=== PATIENT | male | born 1945 | race American Indian/Alaskan Native ===

== ENCOUNTER 2017-04-07 05:49 | Day surgery (SDC) | payer MEDICARE ==
[2017-04-07] MEDS ORDERED: NACL BACTERIOSTATIC INFILTRATI ONE (06:39)
[2017-04-07] MEDS ORDERED: ANCEF/STERILE WATER 2 GM/20 ML IV NR (06:52)
[2017-04-07 07:00] LABS: Hematocrit 36.5 % (35.5-45.6); Hemoglobin 10.8 gm/dl (11.8-15.2); Mean Corpuscular HGB Conc 29 % (32-34); Mean Corpuscular Hemoglobin 19 pg (28-32); Mean Corpuscular Volume 64 fl (84-94); Platelet Count 214 K/mm3 (140-440); Red Blood Count 5.72 M/mm3 (3.65-5.03); Red Cell Distribution Width 27.8 % (13.2-15.2)
--- NOTE | 2017-04-07 07:06 | Anesthesia Day of Surgery ---
Anesthesia Day of Surgery - Day of Surgery Patient Examined: Yes Patient H&P Reviewed: Yes Patient is NPO: Yes
--- NOTE | 2017-04-07 07:07 | Anesthesia Consultation ---
Anesthesia Consult and Med Hx Date of service: 04/07/17 - Airway Anesthetic Teeth Evaluation: Bridges ROM Head & Neck: Adequate Mental/Hyoid Distance: Adequate Mallampati Class: Class II Intubation Access Assessment: Probably Good - Pulmonary Exam CTA: Yes - Cardiac Exam Cardiac Exam: RRR - Pre-Operative Health Status ASA Pre-Surgery Classification: ASA3 Proposed Anesthetic Plan: General - Pulmonary Hx Smoking: No Hx Asthma: No Hx Sleep Apnea: Yes (wears CPAP at night) - Cardiovascular System Hx Hypertension: Yes (20+ YEARS; DR ROSADO AT [facility];) Hx Coronary Artery Disease: Yes (2013, stent x 2 (02/2014 and 05/2013)) Hx Heart Attack/AMI: Yes (07/2013, LVEF 30-35%) Hx Percutaneous Transluminal Coronary Angioplasty (PTCA): Yes (stents x 2) - Central Nervous System Hx Seizures: No 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
[2017-04-07] MEDS ORDERED: ZOFRAN IV PRN (07:08)
[2017-04-07] MEDS ORDERED: SUBLIMAZE IV PRN (07:08)
[2017-04-07] MEDS ORDERED: DIPRIVAN 10 MG/ML IV ONE (07:14)
[2017-04-07] MEDS ORDERED: PROVENTIL IH NR (07:15)
[2017-04-07] MEDS ORDERED: ZEMURON IV ONE (07:15)
[2017-04-07] MEDS ORDERED: DECADRON ONE (07:15)
[2017-04-07] MEDS ORDERED: ROBINUL ONE ×2 (07:15)
[2017-04-07] MEDS ORDERED: NEOSTIGMINE ONE (07:16)
[2017-04-07] MEDS ORDERED: XYLOCAINE MPF 2% ONE (07:16)
[2017-04-07 07:17] LABS: BUN/Creatinine Ratio 13; Blood Urea Nitrogen 13 mg/dL (9-20); Calcium 8.8 mg/dL (8.4-10.2); Hemolysis Index 3
[2017-04-07] MEDS ORDERED: MARCAINE 0.5% 30 ML INFILTRATI ONE (07:21)
[2017-04-07] MEDS ORDERED: AMIDATE IV ONE (07:28)
[2017-04-07] MEDS ORDERED: XYLOCAINE 1% 20 mL INFILTRATI ONE (07:29)
[2017-04-07] MEDS ORDERED: NACL 0.9% IR ONE (07:29)
[2017-04-07] MEDS ORDERED: MARCAINE 0.25% INFILTRATI ONE ×2 (07:29→08:04)
[2017-04-07] MEDS ORDERED: PEPCID IV NR (08:00)
[2017-04-07] MEDS ORDERED: NACL 0.9% 1000 ML 1,000 ML IV SCH (08:00)
[2017-04-07] MEDS ORDERED: XYLOCAINE 1% 20 mL ONE (08:04)
[2017-04-07 08:15] LABS: Anisocytosis 2+; Band Neutrophils # (Manual) 0.1 K/mm3; Basophils % (Manual) 0 % (0.0-1.8); Total Cells Counted 100
[2017-04-07 08:16] LABS: Hypochromasia 2+; Poikilocytosis Few; Target Cells Few
[2017-04-07] MEDS ORDERED: NACL 0.9% 100 ML ONE (08:54)
[2017-04-07] MEDS ORDERED: NEO SYNEPHRINE/NS Syringe(OR USE) IV ONE (08:54)
[2017-04-07] MEDS ORDERED: NEO SYNEPHRINE ONE (08:54)
[2017-04-07] MEDS ORDERED: NACL 0.9% 1000 ML 1,000 ML ONE (09:52)
--- NOTE | 2017-04-07 10:12 | Short Stay Summary ---
Short Stay Documentation Date of service: 04/07/17 Narrative H&P: 72 year male with a history of hypertension, CAD, was seen in the office for complaints of right groin bulge and was found to have a right inguinal hernia which is reducible. The patient had a history of a right inguinal hernia repair in the past. He has no complaints today. - History Principal diagnosis: recurrent right inguinal hernia H&P: obtained from office - Allergies and Medications Current Medications: Allergies No Known Allergies Allergy (Verified 04/06/14 09:15) Home Medications Medication Instructions Recorded Confirmed Last Taken Type Simvastatin 20 mg PO QDAY 02/24/14 04/06/14 04/06/17 History Carvedilol [Coreg] 6.25 mg PO BID #60 tablet 02/26/14 04/06/14 04/07/17 Rx Magnesium Oxide [Mag-Ox] 400 mg PO QDAY #30 tablet 02/26/14 04/06/14 04/06/17 Rx Tizanidine HCl [tiZANidine] 4 mg PO PRN PRN 03/21/14 04/06/14 04/06/17 History Pantoprazole [Protonix] 40 mg PO BID #30 tablet 11/26/15 04/06/17 Rx Lisinopril [Zestril TAB] 40 mg PO DAILY 04/07/17 04/07/17 04/07/17 History Active Medications Cefazolin Sodium (Ancef/Sterile Water 2 Gm/20 Ml) 2 gm IV PREOP NR Stop: 04/07/17 23:59 Famotidine (Pepcid) 20 mg IV PREOP NR Stop: 04/07/17 12:00 Last Admin: 04/07/17 07:10 Dose: 20 mg Fentanyl (Sublimaze) 50 mcg IV Q5MIN PRN PRN Reason: Pain , Severe (7-10) Stop: 04/07/17 15:00 Hydromorphone HCl (Dilaudid) 0.25 mg IV Q10MIN PRN PRN Reason: Pain, Moderate (4-6) Stop: 04/07/17 15:00 Sodium Chloride (Nacl 0.9% 1000 Ml) 1,000 mls @ 75 mls/hr IV DIRECT ANIA Last Admin: 04/07/17 07:05 Dose: 75 mls/hr Ondansetron HCl (Zofran) 4 mg IV ONCE PRN PRN Reason: Nausea And Vomiting Stop: 04/07/17 12:00 - Brief post op/procedure progress note Date of procedure: 04/07/17 Pre-op diagnosis: recurrent right inguinal hernia, reducible Post-op diagnosis: same Procedure: Laparoscopic right inguinal hernia repair with mesh Anesthesia: EMILIANA local Findings: Large indirect hernia with chronically incarcerated sac Surgeon: BHAVIK LINN Estimated blood loss: minimal Pathology: none Condition: stable - Hospital course Hospital course: Patient underwent a laparoscopic right inguinal hernia repair with mesh. He was observed in the recovery room until discharge criteria was met. He was discharged home in stable condition. - Disposition Condition at discharge: Good Disposition: DC- TO HOME OR SELFCARE - Discharge Diagnoses (1) Recurrent inguinal hernia of right side without obstruction or gangrene Status: Acute Short Stay Discharge Plan Activity: other (do not lift greater than 15-20 pounds for the next 4-6 weeks. No driving while taking narcotic pain medication) Diet: low salt Wound: open to air (May shower tomorrow. Do not submerge incisions and bathtubs , pools, hot tubs until incisions are healed. Pad incisions dry, do not scrub) Additional Instructions: Call surgeon's office if you've fevers greater than 100.4, abdominal pain not controlled with prescription pain medication, intractable nausea/vomiting. He may experience swelling and bruising of the groin, scrotum. Use ice to the area for discomfort. If the swelling and bruising do not improve, call the surgeon's office. Follow up with: JINNY GAONA MD [Primary Care Provider] - 7 Days BHAVIK LINN DO [Staff Physician] - 14 Days Forms: Outpatient Surgery DC Inst. Prescriptions: HYDROcodone/ACETAMINOPHEN [Vicodin HP 10-300 mg TAB] 1 tab PO Q4H PRN #30 tablet PRN Reason: Pain
[2017-04-07] MEDS: DILAUDID IV PRN ×2 (10:25→10:34)
--- NOTE | 2017-04-07 10:27 | Operative Report ---
Operative Report Operative Report: Operative Report: Date of operation: 04/07/17 Preoperative diagnosis: Recurrent right inguinal hernia without obstruction or gangrene Postoperative diagnosis: Same as above Procedure performed: Laparoscopic right inguinal hernia repair with mesh Surgeon: Malgorzata Mohamud DO Anesthesia: Gen. endotracheal anesthesia Findings: indirect defect with large chronically incarcerated hernia sac Estimated blood loss: Less than 10 mL Specimen: None Complications: None Disposition: Stable to PACU HPI an indication: Patient is a 72 male who presented to office for evaluation of a lump in his right groin. The patient had a history of right femoral hernia repair in the past. He was found to have a right inguinal hernia, which was reducible on exam. The patient was set up for elective laparoscopic right inguinal hernia repair with mesh. Cardiology clearance were obtained prior to surgery. All risks of surgery were discussed with the patient, all questions answered, and consent was signed and placed on the chart. Procedure in detail: The patient was identified in the preoperative area, taken back to the operating room and placed on the operating table in supine position. After anesthesia was induced a Saucedo catheter was sterilely placed by the circulating nurse. Both arms were tucked at the side with the appropriate padding. The abdomen was then prepped and draped in usual sterile fashion and a timeout was performed. Local anesthetic, a mixture of 0.25% Marcaine and 1% lidocaine was injected into all skin incision sites. A horizontal incision was made to the left of the umbilicus using an 15 blade. Dissection was carried down through the skin and subcutaneous tissue using Bovie electrocautery until the anterior fascia was encountered. This was opened with the Bovie until muscle was visualized. The muscle was gently split in the direction of its fibers and the preperitoneal space entered. The preperitoneal space was bluntly developed with a gloved finger. Then the Spacemaker balloon was inserted into this layer and gently guided towards the pubic tubercle. Once in the correct position, the Spacemaker balloon was inflated under direct visualization using the laparoscopic camera. Once the space was dissected, the balloon was deflated and removed. A 12 mm balloon trocar was then placed into the preperitoneal space and the space insufflated to 15 mmHg. 2- 5 mm trocars were then placed under direct visualization in the midline, the first 3 fingerbreadths below the umbilicus and the second 3 fingerbreadths below that. Using the laparoscopic Kittner dissectors, the space lateral to the cord structures was developed. The peritoneum was scarred down here and an unavoidable small tear was made in the peritoneum. This was approximated well using a 5mm clip metal products viewer. I then turned my attention medially and cleared the pubic tubercle of overlying fat and tissue. The cord was identified and the surrounding fat, peritoneum, and cremasteric muscles were gently from the cord structures. The patient had an indirect hernia, and a large hernia sac which was completely reduced. Hemostasis was then ensured. A large right- sided bard 3-D max mesh was then introduced through the 12 mm port. This was positioned appropriately with the medial aspect over the pubic tubercle. The mesh was laid flat and tacked to the pubic tubercle medially, and laterally to the abdominal wall using the pro-tack. 10 mL of local anesthetic was instilled into the preperitoneal space through a trocar. The preperitoneal space was then desufflated under direct visualization and the mesh was seen to lay flat. All ports were then removed. I then decided to place a port through the periumbilical incision and insufflate the abdomen in order to ensure that the mesh was covered completely by peritoneum and not in contact with bowel. The peritoneum was grasped between 2 hemostats and tented upwards. It was cut between hemostats using a Metzenbaum scissor. A 5 mm trocar was placed through this and the abdomen insufflated to 15 mmHg. The abdomen was then inspected and the area of the right groin was visualized. The mesh was not exposed to the intra-abdominal structures and was seen to lay flat in the preperitoneal space. In addition, there did not appear to be any injury to the intra-abdominal structures. The abdomen was then desufflated and the trocar removed. The fascia of the umbilical port was closed using interrupted 0 Vicryl stitches. All skin incisions were closed with 4-0 Monocryl subcuticular stitches and skin glue. Local anesthetic was infiltrated into the skin sites. At the end of the case, all sponge, instrument, sharp counts were correct 2. The patient's scrotum was palpated, there were 2 testicles present. Residual scrotal air was decompressed. The Saucedo catheter was removed. The patient was awoken from anesthesia, extubated, and he was taken to PACU in stable condition.
--- NOTE | 2017-04-07 10:50 | Post Anesthesia Evaluation ---
- Post Anesthesia Evaluation Patient Participated: Yes Airway Patent: Yes Stable Respiratory Function: Yes Nausea/Vomiting: No Temp > 96.8F: Yes Pain Manageable: Yes Adequeate Hydration: Yes Anesthesia Complications: No
[2017-04-07 13:05] VITALS: BP 153/94
== END 2017-04-07 12:32 | disposition home or self-care (01) ==
LOC: OR 05:49
PROVIDERS: ATTEND Surgery
DX: K40.91 Unilateral inguinal hernia, without obstruction or gangrene, recurrent (principal); I10 Essential (primary) hypertension; I25.10 Atherosclerotic heart disease of native coronary artery without angina pectoris; Z95.1 Presence of aortocoronary bypass graft; I21.3 ST elevation (STEMI) myocardial infarction of unspecified site; I63.9 Cerebral infarction, unspecified; M19.90 Unspecified osteoarthritis, unspecified site; Z68.30 Body mass index [BMI] 30.0-30.9, adult; Z79.899 Other long term (current) drug therapy; I25.5 Ischemic cardiomyopathy; E78.5 Hyperlipidemia, unspecified
CPT/HCPCS: 36415; 49651; 80048; 85007; 85025; C1781; J0690; J1100; J1170; J2370; J2405; J2704; J2710; J3010; J7030

== ENCOUNTER 2017-09-30 10:19 | Outpatient (CLI) | payer MEDICARE ==
--- NOTE | 2017-09-30 13:33 | XRay Report ---
Right hip: Pain. The bones are generally well mineralized. There is virtually no joint space remaining in the right hip. Large subchondral erosions are present throughout the femoral head with smaller erosions in the superior acetabulum. The femoral head however is well positioned in the acetabulum. Small subchondral erosions are identified in the lateral aspect of the left acetabulum. The pelvis is not otherwise significantly remarkable. There is bone fusion between the left L4 and L5 transverse processes. Review of prior CT in November 2015 demonstrates similar findings. Impression: 1. Severe degenerative right hip changes. 2. L4-5 fusion as described.
== END 2017-09-30 10:20 | disposition home or self-care (01) ==
LOC: XRAY 10:19
PROVIDERS: ATTEND Orthopaedic Surgery
DX: M16.11 Unilateral primary osteoarthritis, right hip (principal); M43.26 Fusion of spine, lumbar region; I10 Essential (primary) hypertension; I25.10 Atherosclerotic heart disease of native coronary artery without angina pectoris; D64.9 Anemia, unspecified; E78.00 Pure hypercholesterolemia, unspecified; K21.9 Gastro-esophageal reflux disease without esophagitis

== ENCOUNTER 2017-12-18 11:25 | Outpatient (CLI) | payer MEDICARE ==
--- NOTE | 2017-12-18 13:28 | XRay Report ---
RIGHT HIP, 2 VIEWS History: Pain in right hip Findings: Total right hip replacement has been performed. The hardware appears well applied. Subtle fracture lines are identified in the intertrochanteric region of the right femur. These appear to be unchanged since the CT of the right hip performed 10/19/17. Moderate heterotopic calcifications have developed surrounding the right hip. The visualized pelvic bones are intact. Impression: Subtle nondisplaced fracture lines are identified in the proximal right femur as described. Interval development of heterotopic calcifications. Stable appearance of the hip prosthesis.
== END 2017-12-18 11:26 | disposition home or self-care (01) ==
LOC: XRAY 11:25
PROVIDERS: ATTEND Orthopaedic Surgery
DX: S72.144A Nondisplaced intertrochanteric fracture of right femur, initial encounter for closed fracture (principal); I10 Essential (primary) hypertension; I25.10 Atherosclerotic heart disease of native coronary artery without angina pectoris; X58.XXXA Exposure to other specified factors, initial encounter; Y93.89 Activity, other specified; Y92.89 Other specified places as the place of occurrence of the external cause; Y99.8 Other external cause status

== ENCOUNTER 2018-12-18 14:48 | Inpatient (IN) | payer MEDICARE ==
[2018-12-18] MEDS ORDERED: SODIUM CHLORIDE 0.9% 1000 ML 1,000 ML IV ONE ×2 (15:04→16:38)
--- NOTE | 2018-12-18 15:04 | Event Note ---
ED Screening Note Date of service: 12/18/18 Time: 15:00 ED Screening Note: This is a 73 y.o. M. that presents to the ER with incontinence and fatigue for 2 days. PMH of HTN, BPH, GERD, and HLD This initial assessment/diagnostic orders/clinical plan/treatment(s) is/are subject to change based on patients health status, clinical progression and re- assessment by fellow clinical providers in the ED. Further treatment and workup at subsequent clinical providers discretion. Patient/guardian urged not to elope from the ED as their condition may be serious if not clinically assessed and managed. Initial orders include: Accucheck greater than 500 Labs
[2018-12-18 15:38] LABS: Basophils % (Auto) 0.4 % (0.0-1.8); Eosinophils % (Auto) 0.1 % (0.0-4.3); Hemoglobin 13.8 gm/dl (11.8-15.2); Lymphocytes # (Auto) 0.4 K/mm3 (1.2-5.4); Lymphocytes % (Auto) 5.9 % (13.4-35.0); Mean Corpuscular HGB Conc 31 % (32-34); Mean Corpuscular Volume 91 fl (84-94); Monocytes # (Auto) 0.5 K/mm3 (0.0-0.8); Monocytes % (Auto) 7.2 % (0.0-7.3); Platelet Count 193 K/mm3 (140-440); Red Blood Count 4.82 M/mm3 (3.65-5.03); Red Cell Distribution Width 13.7 % (13.2-15.2)
[2018-12-18 15:58] LABS: Calcium 9.3 mg/dL (8.4-10.2)
[2018-12-18 16:03] LABS: Bilirubin,Direct 0.3 mg/dL (0-0.2)
[2018-12-18] MEDS ORDERED: SODIUM CHLORIDE 0.9% 1000 ML 2,000 ML IV ONE (16:38)
[2018-12-18] MEDS ORDERED: DEXTROSE 50% IN WATER (25GM) 50 ML SYRINGE IV PRN ×2 (16:38→20:01)
[2018-12-18] MEDS ORDERED: INSULIN REGULAR, HUMAN 100 UNITS/1 ML IV ONE (16:41)
--- NOTE | 2018-12-18 16:41 | Emergency Department Report ---
ED General Adult HPI - General Chief complaint: Hyperglycemia Stated complaint: POSS STROKE Time Seen by Provider: 12/18/18 14:59 Source: patient, RN notes reviewed, old records reviewed Mode of arrival: Wheelchair Limitations: Physical Limitation - History of Present Illness Initial comments: Primary care Dr.: Dr. Allan Mcdaniel's Past medical history: Stroke, heart disease, high cholesterol, hypertension, history of hip replacement This is a 73-year-old gentleman. This patient is not known to this provider previously. He presents to the ER with his . He has a chief complaint of malaise, fatigue, weakness, increased thirst, increased urination. Symptoms present for the past 2 days. He denies physical pain. Symptoms constant. They are painless. They do not radiate anywhere. There were some physical exertion. It decreased with rest. He denies headache, neck pain, chest pain, abdominal pain, cough, urinary symptoms. No history of diabetes that he is aware of. -: Gradual, days(s) Severity scale (0 -10): 0 Consistency: constant Improves with: rest Worsens with: movement - Related Data Home Medications Medication Instructions Recorded Confirmed Last Taken Tizanidine HCl [tiZANidine] 4 mg PO PRN PRN 03/21/14 10/08/17 04/06/17 Lisinopril [Zestril TAB] 20 mg PO BID 04/07/17 10/08/17 04/07/17 Aspirin [Lo-Dose Aspirin EC] 81 mg PO DAILY 10/08/17 10/08/17 Unknown Atorvastatin Calcium [Lipitor] 40 mg PO DAILY 10/08/17 10/08/17 Unknown Carvedilol [Coreg] 12.5 mg PO BID 10/08/17 10/08/17 Unknown Clopidogrel Bisulfate [Plavix] 75 mg PO DAILY 10/08/17 10/08/17 Unknown Ferrous Sulfate [Ferrous Sulfate 324 mg PO DAILY 10/08/17 10/08/17 Unknown 324 MG] Spironolactone [Aldactone] 12.5 mg PO QDAY 10/08/17 10/08/17 Unknown Tamsulosin [Flomax] 0.4 mg PO QDAY 10/08/17 10/08/17 Unknown Previous Rx's Medication Instructions Recorded Last Taken Type Magnesium Oxide [Mag-Ox] 400 mg PO QDAY #30 tablet 02/26/14 04/06/17 Rx Pantoprazole [Protonix TAB] 40 mg PO BID #30 tablet 11/26/15 04/06/17 Rx Allergies Allergy/AdvReac Type Severity Reaction Status Date / Time No Known Allergies Allergy Verified 04/06/14 09:15 ED Review of Systems ROS: Stated complaint: POSS STROKE Other details as noted in HPI Constitutional: malaise Eyes: denies: eye discharge ENT: denies: congestion Respiratory: shortness of breath Cardiovascular: denies: chest pain Endocrine: increased thirst, increased urine Gastrointestinal: denies: abdominal pain Genitourinary: frequency Musculoskeletal: denies: myalgia Skin: denies: lesions Neurological: weakness Psychiatric: anxiety ED Past Medical Hx - Past Medical History Previous Medical History?: Yes Hx Hypertension: Yes (20+ YRS) Hx CVA: Yes (left sided weakness) Hx Heart Attack/AMI: Yes (2013) Hx GERD: Yes Hx Renal Disease: No Hx Arthritis: Yes (KNEES) Hx Seizures: No Hx Asthma: No Hx HIV: No - Surgical History Past Surgical History?: Yes Hx Coronary Stent: Yes (X 2 ,2013 AND 2014) Additional Surgical History: "hernia surgery July 2012" - Social History Smoking Status: Never Smoker Substance Use Type: None - Medications Home Medications: Home Medications Medication Instructions Recorded Confirmed Last Taken Type Magnesium Oxide [Mag-Ox] 400 mg PO QDAY #30 tablet 02/26/14 10/08/17 04/06/17 Rx Tizanidine HCl [tiZANidine] 4 mg PO PRN PRN 03/21/14 10/08/17 04/06/17 History Pantoprazole [Protonix TAB] 40 mg PO BID #30 tablet 11/26/15 10/08/17 04/06/17 Rx Lisinopril [Zestril TAB] 20 mg PO BID 04/07/17 10/08/17 04/07/17 History Aspirin [Lo-Dose Aspirin EC] 81 mg PO DAILY 10/08/17 10/08/17 Unknown History Atorvastatin Calcium [Lipitor] 40 mg PO DAILY 10/08/17 10/08/17 Unknown History Carvedilol [Coreg] 12.5 mg PO BID 10/08/17 10/08/17 Unknown History Clopidogrel Bisulfate [Plavix] 75 mg PO DAILY 10/08/17 10/08/17 Unknown History Ferrous Sulfate [Ferrous Sulfate 324 mg PO DAILY 10/08/17 10/08/17 Unknown History 324 MG] Spironolactone [Aldactone] 12.5 mg PO QDAY 10/08/17 10/08/17 Unknown History Tamsulosin [Flomax] 0.4 mg PO QDAY 10/08/17 10/08/17 Unknown History ED Physical Exam - General Limitations: No Limitations General appearance: alert, anxious, in distress - Head Head exam: Present: atraumatic, normocephalic - Eye Eye exam: Present: normal appearance, EOMI. Absent: nystagmus - ENT ENT exam: Present: mucous membranes dry, normal external ear exam - Neck Neck exam: Present: normal inspection, full ROM. Absent: tenderness, meningismus - Respiratory Respiratory exam: Present: normal lung sounds bilaterally. Absent: respiratory distress - Cardiovascular Cardiovascular Exam: Present: normal rhythm, tachycardia, normal heart sounds. Absent: bradycardia, systolic murmur, diastolic murmur, rubs, gallop - GI/Abdominal GI/Abdominal exam: Present: soft. Absent: distended, tenderness, guarding, rebound, rigid, pulsatile mass - Rectal Rectal exam: Present: deferred - Extremities Exam Extremities exam: Present: normal inspection, full ROM, other (2+ pulses noted in the bilateral upper, lower extremities. There is no long bone tenderness. Musculoskeletal compartments are soft. The pelvis is stable.). Absent: pedal edema, joint swelling, calf tenderness - Back Exam Back exam: Present: normal inspection, full ROM. Absent: tenderness, CVA tenderness (R), CVA tenderness (L), paraspinal tenderness, vertebral tenderness - Neurological Exam Neurological exam: Present: alert, other (there is no facial droop. The tongue is midline. Extraocular movements are intact bilaterally. Patient speaking in full complete sentences. Shoulder shrug is intact bilaterally. Hearing is grossly intact bilaterally. Visual acuity intact to finger counting and color perception at a close distance. 5/5 strength 4 extremities. Sensation intact to light touch in 4 extremities.). Absent: motor sensory deficit - Psychiatric Psychiatric exam: Present: anxious - Skin Skin exam: Present: warm, dry, intact, normal color. Absent: rash ED Course Vital Signs 12/18/18 12/18/18 12/18/18 15:20 15:44 16:27 Temperature 99 F 98.8 F Pulse Rate 96 H 90 Respiratory 16 20 20 Rate Blood Pressure 121/66 111/71 [Left] O2 Sat by Pulse 99 95 95 Oximetry 12/18/18 18:14 Temperature Pulse Rate 96 H Respiratory 20 Rate Blood Pressure 114/80 [Left] O2 Sat by Pulse 96 Oximetry ED Medical Decision Making - Lab Data Result diagrams: 12/18/18 15:11 12/18/18 17:38 Vital Signs 12/18/18 12/18/18 12/18/18 15:20 15:44 16:27 Temperature 99 F 98.8 F Pulse Rate 96 H 90 Respiratory 16 20 20 Rate Blood Pressure 121/66 111/71 [Left] O2 Sat by Pulse 99 95 95 Oximetry Lab Results 12/18/18 12/18/18 12/18/18 Range/Units 14:59 15:11 15:11 WBC 6.4 (4.5-11.0) K/mm3 RBC 4.82 (3.65-5.03) M/mm3 Hgb 13.8 (11.8-15.2) gm/dl Hct 44.0 (35.5-45.6) % MCV 91 (84-94) fl MCH 29 (28-32) pg MCHC 31 L (32-34) % RDW 13.7 (13.2-15.2) % Plt Count 193 (140-440) K/mm3 Lymph % (Auto) 5.9 L (13.4-35.0) % Scott % (Auto) 7.2 (0.0-7.3) % Eos % (Auto) 0.1 (0.0-4.3) % Baso % (Auto) 0.4 (0.0-1.8) % Lymph # 0.4 L (1.2-5.4) K/mm3 Scott # 0.5 (0.0-0.8) K/mm3 Eos # 0.0 (0.0-0.4) K/mm3 Baso # 0.0 (0.0-0.1) K/mm3 Seg Neutrophils % 86.4 H (40.0-70.0) % Seg Neutrophils # 5.5 (1.8-7.7) K/mm3 VBG pH (7.320-7.420) Sodium 114 L* (137-145) mmol/L Potassium 7.0 H* (3.6-5.0) mmol/L Chloride 72.9 L (98-107) mmol/L Carbon Dioxide 21 L (22-30) mmol/L Anion Gap 26 mmol/L BUN 52 H (9-20) mg/dL Creatinine 2.6 H (0.8-1.5) mg/dL Estimated GFR 30 ml/min BUN/Creatinine Ratio 20 % Glucose 1570 H* (75-100) mg/dL POC Glucose > 500 H (70-105) Calcium 9.3 (8.4-10.2) mg/dL Total Bilirubin (0.1-1.2) mg/dL Direct Bilirubin (0-0.2) mg/dL Indirect Bilirubin mg/dL AST (5-40) units/L ALT (7-56) units/L Alkaline Phosphatase (35-129) units/L Total Protein (6.3-8.2) g/dL Albumin (3.9-5) g/dL Albumin/Globulin Ratio % 12/18/18 12/18/18 Range/Units 15:11 15:11 WBC (4.5-11.0) K/mm3 RBC (3.65-5.03) M/mm3 Hgb (11.8-15.2) gm/dl Hct (35.5-45.6) % MCV (84-94) fl MCH (28-32) pg MCHC (32-34) % RDW (13.2-15.2) % Plt Count (140-440) K/mm3 Lymph % (Auto) (13.4-35.0) % Scott % (Auto) (0.0-7.3) % Eos % (Auto) (0.0-4.3) % Baso % (Auto) (0.0-1.8) % Lymph # (1.2-5.4) K/mm3 Scott # (0.0-0.8) K/mm3 Eos # (0.0-0.4) K/mm3 Baso # (0.0-0.1) K/mm3 Seg Neutrophils % (40.0-70.0) % Seg Neutrophils # (1.8-7.7) K/mm3 VBG pH 7.386 (7.320-7.420) Sodium (137-145) mmol/L Potassium (3.6-5.0) mmol/L Chloride (98-107) mmol/L Carbon Dioxide (22-30) mmol/L Anion Gap mmol/L BUN (9-20) mg/dL Creatinine (0.8-1.5) mg/dL Estimated GFR ml/min BUN/Creatinine Ratio % Glucose (75-100) mg/dL POC Glucose (70-105) Calcium (8.4-10.2) mg/dL Total Bilirubin 1.20 (0.1-1.2) mg/dL Direct Bilirubin 0.3 H (0-0.2) mg/dL Indirect Bilirubin 0.9 mg/dL AST 30 (5-40) units/L ALT 41 (7-56) units/L Alkaline Phosphatase 235 H (35-129) units/L Total Protein 7.6 (6.3-8.2) g/dL Albumin 4.0 (3.9-5) g/dL Albumin/Globulin Ratio 1.1 % - EKG Data -: EKG Interpreted by [facility] EKG shows normal: sinus rhythm Rate: normal - EKG Data 12/18/18 17:30 Today's EKG shows a sinus rhythm, 87 bpm, left axis deviation, borderline left anterior fascicular block, incomplete right bundle branch block, nonspecific ST T abnormalities, interventricular conduction delay, low voltage, this EKG is abnormal, the EKG is not consistent with ST elevation myocardial infarction. QRS complex appears to be wider than when compared to prior EKG. The patient does not endorse chest pain, and this EKG is not consistent with ST elevation myocardial infarction - Radiology Data Radiology results: pending, report reviewed, image reviewed Referring Physician: ELI DIXON Patient Name: MINNIE JAMESON Date of : 1945 Sex: Male Report Date: 2018-12-18 Report Status: Finalized Findings [facility] [address] [place] [address] XRay Report Signed Patient: MINNIE JAMESON MR#: [id number] : 1945 Acct:[id number] Age/Sex: 73 / M ADM Date: 12/18/18 Loc: ED Attending Dr: Ordering Physician: ELI DIXON MD Date of Service: 12/18/18 Procedure(s): XR chest 1V ap Accession Number(s): [id number] cc: ELI DIXON MD Fluoro Time In Minutes: CHEST 1 VIEW INDICATION: weak dka. COMPARISON: None. FINDINGS: Support devices: None. Heart: Normal. Lungs/Pleura: No acute pulmonary or pleural findings. IMPRESSION: 1. No acute findings. Signer Name: Mp Nguyen MD Signed: 12/18/2018 5:58 PM Workstation Name: [id number] Transcribed By: JOANN Dictated By: Mp Nguyen MD Electronically Authenticated By: Mp Nguyen MD Signed Date/Time: 12/18/18 2746 - Medical Decision Making Differential diagnosis, including not limited to: Pneumonia, urinary tract infection, diabetic ketoacidosis, dehydration, prerenal azotemia Assessment and plan: 73-year-old gentleman with malaise, fatigue, dry mucous membranes, hyperglycemia, anion gap, hyperkalemia, pseudohyponatremia, likely presenting with diabetic ketoacidosis. He is asking to drink at this time. We will give him IV fluids, insulin bolus, and initiate insulin therapy. Advised patient and that he most likely is diabetic. Hemoglobin A1c of 16 is appreciated. Briefly discussed diet and lifestyle modifications. Patient and family amenable to hospitalization at this time. Case presented to Hospital physician, Dr Luli Beavers., who has accepted the patient to the medical service. Case discussed with critical care physician, Dr. Leach, who agrees with placement into the intensive care unit. Pseudohyponatremia should correct with glycemic management. Hyperkalemia should correct with insulin therapy and IV fluids. Critical Care Time: Yes Critical care time in (mins) excluding proc time.: 35 Critical care attestation.: If time is entered above; I have spent that time in minutes in the direct care of this critically ill patient, excluding procedure time. ED Disposition Clinical Impression: Acute renal failure (ARF), DKA (diabetic ketoacidoses) Disposition: OP ADMIT IP TO THIS HOSP Is pt being admited?: Yes Condition: Critical
[2018-12-18] MEDS ORDERED: D5W/0.45% NACL/KCL 20 MEQ 20 MEQ/1,000 ML BAG IV SCH (17:00)
[2018-12-18 17:25] LABS: Calcium 9.4 mg/dL (8.4-10.2)
[2018-12-18] MEDS: INSULIN REGULAR, HUMAN 100 UNITS in SODIUM CHLORIDE 0.9% 99 ML IV SCH (17:29)
[2018-12-18 17:30] LABS: Uric Acid 9.1 mg/dL (3.5-7.6)
--- NOTE | 2018-12-18 18:02 | XRay Report ---
CHEST 1 VIEW INDICATION: weak dka. COMPARISON: None. FINDINGS: Support devices: None. Heart: Normal. Lungs/Pleura: No acute pulmonary or pleural findings. IMPRESSION: 1. No acute findings. Signer Name: Mp Nguyen MD Signed: 12/18/2018 5:58 PM Workstation Name: [id number]
[2018-12-18 18:18] LABS: Calcium 9.1 mg/dL (8.4-10.2)
[2018-12-18] MEDS ORDERED: SODIUM CHLORIDE 0.9% 1000 ML 1,000 ML ONE ×2 (18:44→18:45)
[2018-12-18 19:44] LABS: Bilirubin,Urine NEG (Negative); Blood,Urine NEG (Negative); Color,Urine Colorless (Yellow); Mucus,Urine FEW /HPF; Protein,Urine <15 mg/dL mg/dL (Negative); Urobilinogen,Urine < 2.0 mg/dL (<2.0); WBC,Urine < 1.0 /HPF (0.0-6.0)
[2018-12-18 19:52] LABS: Creatinine,Urine 24.7 mg/dL (0.1-20.0)
[2018-12-18] MEDS ORDERED: ACETAMINOPHEN 325 MG TAB PO PRN (19:57)
[2018-12-18] MEDS ORDERED: ONDANSETRON 4 MG/2 ML INJ IV PRN (19:57)
[2018-12-18] MEDS ORDERED: HYDROmorphone 1 MG/1 ML INJ IV PRN (19:57)
[2018-12-18] MEDS ORDERED: tiZANidine TAB 4 MG TAB PO PRN (19:59)
[2018-12-18] MEDS ORDERED: ASPIRIN 81 MG TAB CHEW ONE (20:40)
[2018-12-18] MEDS: ASPIRIN EC 81 MG TAB PO SCH (20:53)
[2018-12-18] MEDS ORDERED: INSULIN REGULAR, HUMAN 100 UNITS in SODIUM CHLORIDE 0.9% 99 ML IV SCH (21:00)
[2018-12-18 21:32] LABS: Calcium 9.7 mg/dL (8.4-10.2)
[2018-12-18] MEDS ORDERED: LISINOPRIL 40 MG TAB PO SCH (22:00)
[2018-12-18] MEDS ORDERED: carvediloL 3.125 MG TAB PO SCH (22:00)
[2018-12-18] MEDS ORDERED: SODIUM CHLORIDE 0.9% 1000 ML 1,000 ML IV SCH (23:00)
[2018-12-18] MEDS: PANTOPRAZOLE 40 MG TAB PO SCH (23:44)
[2018-12-18] MEDS: carvediloL 12.5 MG TAB PO SCH (23:44)
[2018-12-18] MEDS: FAMOTIDINE 20 MG/2 ML INJ IV SCH (23:44)
[2018-12-18] MEDS: LISINOPRIL 20 MG TAB PO SCH (23:45)
[2018-12-19 00:17] LABS: Calcium 9.4 mg/dL (8.4-10.2)
[2018-12-19 01:40] LABS: Calcium 9.2 mg/dL (8.4-10.2)
--- NOTE | 2018-12-19 03:01 | Event Note ---
Date: 12/19/18 Pt is hypotensive with SBP in 70's- low 80's despite being on maintenance fluids and receive an fluid resuscitation. Will start on Robert-Synephrine to maintain map of 65.
[2018-12-19] MEDS: PHENYLEPHRINE 100 MG in SODIUM CHLORIDE 0.9% 90 ML IV SCH (03:15)
[2018-12-19] MEDS: INSULIN REGULAR, HUMAN 100 UNITS in SODIUM CHLORIDE 0.9% 99 ML IV SCH (04:07)
[2018-12-19 05:42] LABS: Calcium 9.3 mg/dL (8.4-10.2)
[2018-12-19] MEDS: POTASSIUM CHLORIDE 10 MEQ 10 MEQ/100 ML BAG IV SCH ×4 (06:30→06:32)
--- NOTE | 2018-12-19 06:38 | Event Note ---
Date: 12/18/18 See H/p in reports Hyperosmolar non ketotic state in new onset Diabetes
--- NOTE | 2018-12-19 08:44 | History and Physical Report ---
CHIEF COMPLAINT: Severe weakness and increased thirst and increased urination for the past 2 days. HISTORY OF PRESENT ILLNESS: A 73-year-old -[place]ag[place] male with history of hypertension, hyperlipidemia, coronary artery disease, and BPH, presents to the emergency room with generalized weakness, increased thirst, increased urination, and increasing fatigue. These symptoms have been going on for more than a week, but more so for the last 2 days. The patient denies having diabetes. In the emergency room, the patient's blood glucose level was in the 1500s. The patient is adamant that he was never diagnosed with diabetes. The patient was in this facility in November 2017. The patient had labs in September 2017 in this facility and the blood glucose level was 130 and 150 and there was no suspicion for diabetes at that point, but there was no A1c at that point. PAST MEDICAL HISTORY: As mentioned, hypertension, coronary artery disease, hyperlipidemia, BPH. CURRENT MEDICATIONS: On chart. PAST SURGICAL HISTORY: Coronary stent x 2 in 2013 and 2014, hernia repair in 2012. SOCIAL HISTORY: He does not smoke. No alcohol, no recreational drugs. FAMILY HISTORY: Significant for hypertension. REVIEW OF SYSTEMS: Significant for generalized weakness, polyuria, polydipsia, and polyphagia going on for about a month, more so for the last 2 days. The patient feels dehydrated. PHYSICAL EXAMINATION: GENERAL: Elderly male, cooperative during examination. VITAL SIGNS: Blood pressure is 121/66, temperature is 99, pulse is 96, respiratory rate is 16. HEENT: Unremarkable. Tongue dry. NECK: Supple. No lymphadenopathy, no thyromegaly. LUNGS: Clear to auscultation and percussion. Good air entry. CARDIOVASCULAR: S1 and S2 heard. No gallop, no murmur, no rub. Apical impulse in left fifth intercostal space and midclavicular line. ABDOMEN: Soft and benign. No hepatosplenomegaly, no guarding, no rigidity. Hernial orifices are normal. EXTREMITIES: Good pedal pulses. No pedal edema. CENTRAL NERVOUS SYSTEM: Alert and oriented x 4, nonfocal exam. LABORATORY DATA: White count is 12,600, H and H is 9.6 and 28.8, platelet count is 129,000. Repeat CBC with white count of 6400, H and H is 13.8 and 44.0, platelet count is 193,000. Sodium is 114, potassium is 7.0, chloride is 72.9, BUN and creatinine 52 and 2.6. Anion gap is 26, blood glucose is 1570. A1c is 16.1. LFTs are normal. Urine shows no ketones. Venous pH is 7.386. Chest x-ray was normal, no acute findings. ASSESSMENT AND PLAN: 1. Hyperosmolar nonketotic state in new onset diabetes. The patient is initiated on DKA protocol, IV insulin to bring down the insulin slowly. 2. Hyperkalemia, treated in the emergency room. Also, hyperkalemia should correct with correction of glucose levels. The patient was not given any Kayexalate. Insulin drip is a source for decrease in the serum potassium levels. 3. Hyponatremia, severe. Should correct with correction of blood glucose levels. 4. New onset diabetes. The patient is counseled about diabetes. For the time being, the patient is on insulin drip. The patient to be changed to insulin 70/30 or long-acting basal bolus regimen. 5. Hypertension. Continue antihypertensives. 6. Benign prostatic hypertrophy. Continue tamsulosin. 7. Muscle spasms. Continue Zanaflex. 8. Coronary artery disease. Continue Plavix. 9. Hyperlipidemia. Continue atorvastatin 40 mg daily. 10. Deep venous thrombosis prophylaxis, heparin 5000 q. 12. 11. Acute kidney injury secondary to vasomotor nephropathy/ATN, should correct with IV fluids. Also, Nephrology consult is requested. Critical care time :40 minutes JOB# [id number] TIFF/MITZI ROA
[2018-12-19] MEDS ORDERED: INSULIN NPH/REGULAR 70/30 INJ SUB-Q NR (09:26)
--- NOTE | 2018-12-19 09:44 | Progress Note ---
Assessment and Plan Assessment and plan: --Hyperosmolar nonketotic hyperglycemia; Initiated DKA protocol on insulin drip Patient's patch sugars are reasonable, start ADA diet DC insulin drip transitioned to long-acting 7030 insulin Change IV fluids to normal saline Hemoglobin A1c is more than 16 Diabetic education, diabetic nutrition education Possible home health nurse at discharge for disease monitoring --Hypertension/hypovolemic shock; Continue vasopressors, vigorous IV hydration Closely monitor --Severe hyponatremia present on admission pseudohyponatremia secondary to hyperglycemia Sodium level significantly improved, closely monitor electrolytes --Acute kidney injury; vasomotor nephropathy Gentle hydration, monitor renal function, avoid nephrotoxins Nephrology consult if needed --Chronic systolic congestive heart failure EF 35-40% in 2014 Check echocardiogram if needed, continue heart failure medications --History of coronary artery disease status post PCI in 2013 Continue cardiac medications, cardiology evaluation if needed --Dyslipidemia; continue statin, low cholesterol diet --History of BPH; resume Flomax --Morbid obesity; advised diet modification and exercise as tolerated and weight reduction when medically stable --DVT prophylaxis; heparin renal dose --Full CODE STATUS Monitor closely and adjust management as needed Cr Care time 40 min The high probability of a clinically significant, sudden or life threatening deterioration of the [metabolic, renal, cardiac, endocrine system](s) required my full and direct attention, intervention and personal management. The aggregate critical care time was [40] minutes. This time is in addition to time spent performing reported procedures but includes the following: [] Data Review and interpretation [] Patient assessment and monitoring of vital signs [] Documentation [] Medication orders and management History Interval history: Patient seen and examined in ICU medical records reviewed Admitted with hyperosmolar nonketotic hyperglycemia On insulin drip, patient's anion gap closed, the blood sugars are reasonable level Hypotensive on vasopressor Patient alert awake oriented, No complaints Vital signs noted Hospitalist Physical - Constitutional Vitals: Temp Pulse Resp BP Pulse Ox 98.1 F 70 20 99/61 100 12/19/18 08:00 12/19/18 09:11 12/19/18 09:11 12/19/18 09:11 12/19/18 09:11 General appearance: Present: no acute distress, well-nourished - EENT Eyes: Present: PERRL, EOM intact - Neck Neck: Present: supple, normal ROM - Respiratory Respiratory effort: normal Respiratory: bilateral: diminished, negative: rales, rhonchi, wheezing - Cardiovascular Rhythm: regular Heart Sounds: Present: S1 & S2 - Extremities Extremities: no ischemia, No edema - Abdominal General gastrointestinal: soft, non-tender, non-distended, normal bowel sounds - Integumentary Integumentary: Present: clear, warm - Psychiatric Psychiatric: appropriate mood/affect, cooperative - Neurologic Neurologic: moves all extremities Results - Labs CBC & Chem 7: 12/18/18 15:11 12/19/18 09:28 Labs: Laboratory Last Values WBC 6.4 K/mm3 (4.5-11.0) 12/18/18 15:11 RBC 4.82 M/mm3 (3.65-5.03) 12/18/18 15:11 Hgb 13.8 gm/dl (11.8-15.2) 12/18/18 15:11 Hct 44.0 % (35.5-45.6) 12/18/18 15:11 MCV 91 fl (84-94) 12/18/18 15:11 MCH 29 pg (28-32) 12/18/18 15:11 MCHC 31 % (32-34) L 12/18/18 15:11 RDW 13.7 % (13.2-15.2) 12/18/18 15:11 Plt Count 193 K/mm3 (140-440) 12/18/18 15:11 Lymph % (Auto) 5.9 % (13.4-35.0) L 12/18/18 15:11 [place] % (Auto) 7.2 % (0.0-7.3) 12/18/18 15:11 Eos % (Auto) 0.1 % (0.0-4.3) 12/18/18 15:11 Baso % (Auto) 0.4 % (0.0-1.8) 12/18/18 15:11 Lymph # 0.4 K/mm3 (1.2-5.4) L 12/18/18 15:11 [place] # 0.5 K/mm3 (0.0-0.8) 12/18/18 15:11 Eos # 0.0 K/mm3 (0.0-0.4) 12/18/18 15:11 Baso # 0.0 K/mm3 (0.0-0.1) 12/18/18 15:11 Seg Neutrophils % 86.4 % (40.0-70.0) H 12/18/18 15:11 Seg Neutrophils # 5.5 K/mm3 (1.8-7.7) 12/18/18 15:11 VBG pH 7.386 (7.320-7.420) 12/18/18 15:11 Sodium 141 mmol/L (137-145) 12/19/18 04:23 Potassium 3.6 mmol/L (3.6-5.0) 12/19/18 04:23 Chloride 103.2 mmol/L (98-107) 12/19/18 04:23 Carbon Dioxide 25 mmol/L (22-30) 12/19/18 04:23 16 mmol/L 12/19/18 04:23 BUN 46 mg/dL (9-20) H 12/19/18 04:23 2.4 mg/dL (0.8-1.5) H 12/19/18 04:23 Estimated GFR 32 ml/min 12/19/18 04:23 19 % 12/19/18 04:23 Glucose 196 mg/dL (75-100) H 12/19/18 04:23 POC Glucose 216 (70-105) H 12/19/18 09:18 16.1 % (4-6) H 12/18/18 16:42 9.1 mg/dL (3.5-7.6) H 12/18/18 16:42 Calcium 9.3 mg/dL (8.4-10.2) 12/19/18 04:23 Phosphorus 2.80 mg/dL (2.5-4.5) D 12/18/18 20:33 Magnesium 2.80 mg/dL (1.7-2.3) H 12/18/18 20:33 1.20 mg/dL (0.1-1.2) 12/18/18 15:11 0.3 mg/dL (0-0.2) H 12/18/18 15:11 0.9 mg/dL 12/18/18 15:11 AST 30 units/L (5-40) 12/18/18 15:11 ALT 41 units/L (7-56) 12/18/18 15:11 235 units/L (35-129) H 12/18/18 15:11 205 units/L (55-170) H 12/18/18 16:42 7.6 g/dL (6.3-8.2) 12/18/18 15:11 4.0 g/dL (3.9-5) 12/18/18 15:11 1.1 % 12/18/18 15:11 TSH 1.590 mlU/mL (0.270-4.200) 12/18/18 16:42 Colorless (Yellow) 12/18/18 19:25 Clear (Clear) 12/18/18 19:25 6.0 (5.0-7.0) 12/18/18 19:25 Ur Specific [place] 1.020 (1.003-1.030) 12/18/18 19:25 <15 mg/dl mg/dL (Negative) 12/18/18 19:25 >=500 mg/dL (Negative) 12/18/18 19:25 Neg mg/dL (Negative) 12/18/18 19:25 Neg (Negative) 12/18/18 19:25 Neg (Negative) 12/18/18 19:25 Neg (Negative) 12/18/18 19:25 < 2.0 mg/dL (<2.0) 12/18/18 19:25 Ur Leukocyte Esterase Neg (Negative) 12/18/18 19:25 < 1.0 /HPF (0.0-6.0) 12/18/18 19:25 1.0 /HPF (0.0-6.0) 12/18/18 19:25 Few /HPF 12/18/18 19:25 466 Mosm/kg 12/18/18 19:25 24.7 mg/dL (0.1-20.0) H 12/18/18 19:25 30 mmol/L 12/18/18 19:25 Active Medications - Current Medications Current Medications: Generic Name Dose Route Start Last Admin Trade Name Freq PRN Reason Stop Dose Admin Acetaminophen 650 mg 12/18/18 19:57 Tylenol PO Q4H PRN Pain MILD(1-3)/Fever >100.5/KIM Aspirin 81 mg 12/18/18 20:00 12/18/18 20:53 Halfprin Ec PO 81 mg DAILY ANIA Administration Atorvastatin Calcium 40 mg 12/18/18 22:00 12/18/18 23:44 Lipitor PO 40 mg QHS ANIA Administration Carvedilol 12.5 mg 12/18/18 22:00 12/18/18 23:44 Coreg PO Not Given BID COUNT INCLUDES [facility] Clopidogrel Bisulfate 75 mg 12/19/18 10:00 Plavix PO DAILY COUNT INCLUDES [facility] Dextrose 0 ml 12/18/18 16:38 D50w (25gm) Syringe IV PRN PRN Hypoglycemia Famotidine 20 mg 12/18/18 22:00 12/18/18 23:44 Pepcid IV 20 mg BID ANIA Administration Heparin Sodium (Porcine) 5,000 unit 12/19/18 10:00 Heparin SUB-Q Q12HR COUNT INCLUDES [facility] Hydromorphone HCl 0.5 mg 12/18/18 19:57 Dilaudid IV Q3H PRN Pain , Severe (7-10) Sodium Chloride 1,000 mls @ 150 mls/hr 12/18/18 23:00 12/19/18 06:23 Nacl 0.9% 1000 Ml IV Infused DIRECT ANIA Infusion Phenylephrine HCl 100 mg/ 100 mls @ 3 mls/hr 12/19/18 03:00 12/19/18 06:35 Sodium Chloride IV 70 mcg/min TITR ANIA 4.2 mls/hr Titration Protocol 50 MCG/MIN Insulin Human Isoph/Insulin Regular 15 unit 12/19/18 17:00 Humulin 70/30 SUB-Q BIDDIAB ANIA Insulin Human Isoph/Insulin Regular 8 unit 12/19/18 09:26 Humulin 70/30 SUB-Q 12/19/18 10:26 ONCE NR Insulin Human Lispro 0 unit 12/19/18 11:30 Humalog SUB-Q ACHS COUNT INCLUDES [facility] Protocol Lisinopril 20 mg 12/18/18 22:00 12/18/18 23:45 Zestril PO Not Given BID COUNT INCLUDES [facility] Magnesium Oxide 400 mg 12/19/18 10:00 Mag-Ox PO QDAY COUNT INCLUDES [facility] Ondansetron HCl 4 mg 12/18/18 19:57 Zofran IV Q8H PRN Nausea And Vomiting Pantoprazole Sodium 40 mg 12/18/18 22:00 12/18/18 23:44 Protonix PO 40 mg BID ANIA Administration Sodium Chloride 10 ml 12/18/18 22:00 12/18/18 23:45 Sodium Chloride Flush Syringe 10 Ml IV 10 ml BID ANIA Administration Sodium Chloride 10 ml 12/18/18 19:57 Sodium Chloride Flush Syringe 10 Ml IV PRN PRN LINE FLUSH Spironolactone 12.5 mg 12/19/18 10:00 Aldactone PO QDAY COUNT INCLUDES [facility] Tamsulosin HCl 0.4 mg 12/19/18 10:00 Flomax PO QDAY COUNT INCLUDES [facility] Tizanidine HCl 4 mg 12/18/18 19:59 Zanaflex PO TID PRN Spasms
[2018-12-19 09:49] LABS: Calcium 9.2 mg/dL (8.4-10.2)
[2018-12-19] MEDS ORDERED: SPIRONOLACTONE 25 MG TAB PO SCH (10:00)
[2018-12-19] MEDS: LISINOPRIL 20 MG TAB PO SCH (10:44)
[2018-12-19] MEDS: carvediloL 12.5 MG TAB PO SCH ×2 (10:44→21:26)
--- NOTE | 2018-12-19 10:51 | Consultation ---
History of Present Illness - Reason for Consult Consult date: 12/19/18 acute renal failure Requesting physician: MIGNON BARNHART - History of Present Illness This is a 73 yo M with past medical history of Hypertension, CAD, GERD, CVA, BPH, who presents to ER with complaints of increased thirst, weakness, increased urination. Labs in ER showed severe hyperglycemia with serum glucose > 1500 along with hyperkalemia (K >7), hyponatremia (Na 114), along with increased BUN/ Cr at 52/2.6mg/dl. Pt was admitted to the ICU for IV insulin therapy and IVF for management of new onset DM, Hyperglycemic, hyperosmolar state. Renal consult requested for management of RU/electrolyte imbalance. pt denies previous renal disease, no recent NSAIDs use or IV contrast exposure reported. Past History Past Medical History: CAD, hypertension, hyperlipidemia, other (BPH) Past Surgical History: hernia repair, PTCA Social history: denies: smoking, alcohol abuse, prescription drug abuse, IV drug use Family history: hypertension Medications and Allergies Allergies Allergy/AdvReac Type Severity Reaction Status Date / Time No Known Allergies Allergy Verified 04/06/14 09:15 Home Medications Medication Instructions Recorded Confirmed Last Taken Type Magnesium Oxide [Mag-Ox] 400 mg PO QDAY #30 tablet 02/26/14 10/08/17 04/06/17 Rx Tizanidine HCl [tiZANidine] 4 mg PO PRN PRN 03/21/14 10/08/17 04/06/17 History Pantoprazole [Protonix TAB] 40 mg PO BID #30 tablet 11/26/15 10/08/17 04/06/17 Rx Lisinopril [Zestril TAB] 20 mg PO BID 04/07/17 10/08/17 04/07/17 History Aspirin [Lo-Dose Aspirin EC] 81 mg PO DAILY 10/08/17 10/08/17 Unknown History Atorvastatin Calcium [Lipitor] 40 mg PO DAILY 10/08/17 10/08/17 Unknown History Carvedilol [Coreg] 12.5 mg PO BID 10/08/17 10/08/17 Unknown History Clopidogrel Bisulfate [Plavix] 75 mg PO DAILY 10/08/17 10/08/17 Unknown History Ferrous Sulfate [Ferrous Sulfate 324 mg PO DAILY 10/08/17 10/08/17 Unknown History 324 MG] Spironolactone [Aldactone] 12.5 mg PO QDAY 10/08/17 10/08/17 Unknown History Tamsulosin [Flomax] 0.4 mg PO QDAY 10/08/17 10/08/17 Unknown History Active Meds: Active Medications Acetaminophen (Tylenol) 650 mg PO Q4H PRN PRN Reason: Pain MILD(1-3)/Fever >100.5/KIM Aspirin (Halfprin Ec) 81 mg PO DAILY [facility] Last Admin: 12/18/18 20:53 Dose: 81 mg Documented by: Atorvastatin Calcium (Lipitor) 40 mg PO QHS [facility] Last Admin: 12/18/18 23:44 Dose: 40 mg Documented by: Carvedilol (Coreg) 12.5 mg PO BID [facility] Last Admin: 12/19/18 10:44 Dose: Not Given Documented by: Clopidogrel Bisulfate (Plavix) 75 mg PO DAILY [facility] Dextrose (D50w (25gm) Syringe) 0 ml IV PRN PRN PRN Reason: Hypoglycemia Famotidine (Pepcid) 20 mg IV BID [facility] Last Admin: 12/18/18 23:44 Dose: 20 mg Documented by: Heparin Sodium (Porcine) (Heparin) 5,000 unit SUB-Q Q12HR [facility] Hydromorphone HCl (Dilaudid) 0.5 mg IV Q3H PRN PRN Reason: Pain , Severe (7-10) Sodium Chloride (Nacl 0.9% 1000 Ml) 1,000 mls @ 150 mls/hr IV DIRECT [facility] Last Infusion: 12/19/18 06:23 Dose: Infused Documented by: Phenylephrine HCl 100 mg/ (Sodium Chloride) 100 mls @ 3 mls/hr IV TITR [facility]; Protocol Last Titration: 12/19/18 06:35 Dose: 70 mcg/min, 4.2 mls/hr Documented by: Insulin Human Isoph/Insulin Regular (Humulin 70/30) 15 unit SUB-Q BIDDIAB [facility] Insulin Human Lispro (Humalog) 0 unit SUB-Q ACHS [facility]; Protocol Lisinopril (Zestril) 20 mg PO BID [facility] Last Admin: 12/19/18 10:44 Dose: Not Given Documented by: Magnesium Oxide (Mag-Ox) 400 mg PO QDAY [facility] Ondansetron HCl (Zofran) 4 mg IV Q8H PRN PRN Reason: Nausea And Vomiting Pantoprazole Sodium (Protonix) 40 mg PO BID [facility] Last Admin: 12/18/18 23:44 Dose: 40 mg Documented by: Sodium Chloride (Sodium Chloride Flush Syringe 10 Ml) 10 ml IV BID [facility] Last Admin: 12/18/18 23:45 Dose: 10 ml Documented by: Sodium Chloride (Sodium Chloride Flush Syringe 10 Ml) 10 ml IV PRN PRN PRN Reason: LINE FLUSH Spironolactone (Aldactone) 12.5 mg PO QDAY [facility] Tamsulosin HCl (Flomax) 0.4 mg PO QDAY [facility] Tizanidine HCl (Zanaflex) 4 mg PO TID PRN PRN Reason: Spasms Review of Systems Constitutional: fatigue, weakness, malaise, poor appetite Gastrointestinal: nausea Genitourinary Male: urinary frequency, polyuria Endocrine: polydipsia, polyuria, fatigue Exam - Vital Signs Vital signs: Vital Signs Temp Pulse Resp BP Pulse Ox 99 F 96 H 16 121/66 99 12/18/18 15:20 12/18/18 15:20 12/18/18 15:20 12/18/18 15:20 12/18/18 15:20 - General Appearance General appearance: well-developed, well-nourished, appears stated age EENT: ATNC, PERRL, mucous membranes dry Neck: Present: neck supple Respiratory: Clear to Ascultation Heart: regular, S1S2 Gastrointestinal: Present: normoactive bowel sounds Integumentary: no rash, other (no edema ) Neurologic: no focal deficit, alert and oriented x3, strength 5/5, CN 3-[address] Psychiatric: mood/affect appropriate, cooperative Results - Lab Results 12/18/18 15:11 12/19/18 09:28 Most recent lab results Calcium 9.2 mg/dL (8.4-10.2) 12/19/18 09:28 Phosphorus 2.80 mg/dL (2.5-4.5) D 12/18/18 20:33 Magnesium 2.80 mg/dL (1.7-2.3) H 12/18/18 20:33 24.7 mg/dL (0.1-20.0) H 12/18/18 19:25 30 mmol/L 12/18/18 19:25 Assessment and Plan - Patient Problems (1) Acute kidney failure with tubular necrosis Current Visit: Yes Status: Acute Plan to address problem: RU secondary to ATN secondary to volume depletion, hypovolemic shock in the setting of hyperglycemic hyperosmolar state. s/p multiple IV NS boluses, cont IV NS at 125ml/hr along with vasopressor support with neosynephrine to maintain MAP > 65mmhg. avoid nephrtoxins, NSAIDs, IV contrast. hold antihypertensive meds for now. (2) Hypotension Current Visit: Yes Status: Acute Plan to address problem: cont IV NS, vasopressor support to maintain MAP > 65mmHg (3) Diabetes mellitus with hyperglycemia Current Visit: Yes Status: Acute Plan to address problem: pt is on IV insulin gtt, glucose control as per primary attending (4) Hyperkalemia Current Visit: Yes Status: Acute Plan to address problem: secondary to transcellular shift in the setting of uncontrolled DM/Hyperglycemia. K improved with glucose control and on IVF (5) Hyponatremia Current Visit: Yes Status: Acute Plan to address problem: likely spurious secondary to hyperglycemia, improving with glucose control (6) Essential hypertension Current Visit: No Status: Chronic Plan to address problem: currently hypotensive, requiring vasopressors. cont to hold antihypertensive meds for now
[2018-12-19] MEDS: PANTOPRAZOLE 40 MG TAB PO SCH ×2 (11:08→21:33)
[2018-12-19] MEDS: FAMOTIDINE 20 MG/2 ML INJ IV SCH ×2 (11:09→21:25)
[2018-12-19] MEDS: MAGNESIUM OXIDE 400 MG TAB PO SCH (11:09)
[2018-12-19] MEDS: ASPIRIN EC 81 MG TAB PO SCH (11:09)
[2018-12-19] MEDS: CLOPIDOGREL 75 MG TAB PO SCH (11:09)
[2018-12-19] MEDS: HEPARIN 5,000 UNIT/1 ML VIAL SUB-Q SCH ×2 (11:10→21:33)
[2018-12-19] MEDS: TAMSULOSIN 0.4 MG CAP PO SCH (11:24)
[2018-12-19] MEDS: INSULIN LISPRO 100 UNIT/ML SUB-Q SCH ×3 (12:24→21:32)
--- NOTE | 2018-12-19 14:44 | Consultation ---
History of Present Illness - Reason for Consult Consult date: 12/19/18 Hyperglycemia, Hyperosmolar Requesting physician: ELI DIXON - History of Present Illness 73 y/o male admitted with NK. Patient given IV insulin and then started on Insulin drip. Through the night he became hypotensive and is now on Robert but only at 50. Patient is awake and alert. No family at bedside. Picc nurse about to place picc line. Past History Past Medical History: CAD, hypertension, hyperlipidemia, other (BPH) Past Surgical History: hernia repair, PTCA Social history: denies: smoking, alcohol abuse, prescription drug abuse, IV drug use Family history: hypertension Medications and Allergies Allergies Allergy/AdvReac Type Severity Reaction Status Date / Time No Known Allergies Allergy Verified 04/06/14 09:15 Home Medications Medication Instructions Recorded Confirmed Last Taken Type Magnesium Oxide [Mag-Ox] 400 mg PO QDAY #30 tablet 02/26/14 10/08/17 04/06/17 Rx Tizanidine HCl [tiZANidine] 4 mg PO PRN PRN 03/21/14 10/08/17 04/06/17 History Pantoprazole [Protonix TAB] 40 mg PO BID #30 tablet 11/26/15 10/08/17 04/06/17 Rx Lisinopril [Zestril TAB] 20 mg PO BID 04/07/17 10/08/17 04/07/17 History Aspirin [Lo-Dose Aspirin EC] 81 mg PO DAILY 10/08/17 10/08/17 Unknown History Atorvastatin Calcium [Lipitor] 40 mg PO DAILY 10/08/17 10/08/17 Unknown History Carvedilol [Coreg] 12.5 mg PO BID 10/08/17 10/08/17 Unknown History Clopidogrel Bisulfate [Plavix] 75 mg PO DAILY 10/08/17 10/08/17 Unknown History Ferrous Sulfate [Ferrous Sulfate 324 mg PO DAILY 10/08/17 10/08/17 Unknown History 324 MG] Spironolactone [Aldactone] 12.5 mg PO QDAY 10/08/17 10/08/17 Unknown History Tamsulosin [Flomax] 0.4 mg PO QDAY 10/08/17 10/08/17 Unknown History Active Meds: Active Medications Acetaminophen (Tylenol) 650 mg PO Q4H PRN PRN Reason: Pain MILD(1-3)/Fever >100.5/KIM Aspirin (Halfprin Ec) 81 mg PO DAILY [facility] Last Admin: 12/19/18 11:09 Dose: 81 mg Documented by: Atorvastatin Calcium (Lipitor) 40 mg PO QHS [facility] Last Admin: 12/18/18 23:44 Dose: 40 mg Documented by: Carvedilol (Coreg) 12.5 mg PO BID [facility] Last Admin: 12/19/18 10:44 Dose: Not Given Documented by: Clopidogrel Bisulfate (Plavix) 75 mg PO DAILY [facility] Last Admin: 12/19/18 11:09 Dose: 75 mg Documented by: Famotidine (Pepcid) 20 mg IV BID [facility] Last Admin: 12/19/18 11:09 Dose: Not Given Documented by: Heparin Sodium (Porcine) (Heparin) 5,000 unit SUB-Q Q12HR [facility] Last Admin: 12/19/18 11:10 Dose: 5,000 unit Documented by: Hydromorphone HCl (Dilaudid) 0.5 mg IV Q3H PRN PRN Reason: Pain , Severe (7-10) Sodium Chloride (Nacl 0.9% 1000 Ml) 1,000 mls @ 150 mls/hr IV DIRECT [facility] Last Infusion: 12/19/18 06:23 Dose: Infused Documented by: Phenylephrine HCl 100 mg/ (Sodium Chloride) 100 mls @ 3 mls/hr IV TITR [facility]; Protocol Last Titration: 12/19/18 06:35 Dose: 70 mcg/min, 4.2 mls/hr Documented by: Insulin Human Isoph/Insulin Regular (Humulin 70/30) 15 unit SUB-Q BIDDIAB [facility] Insulin Human Lispro (Humalog) 0 unit SUB-Q ACHS [facility]; Protocol Last Admin: 12/19/18 12:24 Dose: 8 unit Documented by: Magnesium Oxide (Mag-Ox) 400 mg PO QDAY [facility] Last Admin: 12/19/18 11:09 Dose: 400 mg Documented by: Ondansetron HCl (Zofran) 4 mg IV Q8H PRN PRN Reason: Nausea And Vomiting Pantoprazole Sodium (Protonix) 40 mg PO BID [facility] Last Admin: 12/19/18 11:08 Dose: 40 mg Documented by: Sodium Chloride (Sodium Chloride Flush Syringe 10 Ml) 10 ml IV BID [facility] Last Admin: 12/19/18 11:11 Dose: 10 ml Documented by: Sodium Chloride (Sodium Chloride Flush Syringe 10 Ml) 10 ml IV PRN PRN PRN Reason: LINE FLUSH Tamsulosin HCl (Flomax) 0.4 mg PO QDAY [facility] Last Admin: 12/19/18 11:24 Dose: 0.4 mg Documented by: Tizanidine HCl (Zanaflex) 4 mg PO TID PRN PRN Reason: Spasms Review of Systems All systems: negative Exam - Constitutional Vitals: Temp Pulse Resp BP Pulse Ox 97.6 F 74 15 80/57 100 12/19/18 12:00 12/19/18 14:30 12/19/18 14:30 12/19/18 14:30 12/19/18 14:30 General appearance: Present: no acute distress - EENT Eyes: Present: PERRL, EOM intact ENT: hearing intact - Neck Neck: Present: supple, normal ROM - Respiratory Respiratory effort: normal Respiratory: bilateral: CTA - Cardiovascular Rhythm: regular Heart Sounds: Present: S1 & S2 - Extremities Extremities: no ischemia - Abdominal General gastrointestinal: Present: soft, normal bowel sounds Male genitourinary: Present: deferred - Rectal Rectal Exam: deferred Results - Labs CBC & Chem 7: 12/18/18 15:11 12/19/18 09:28 Labs: Abnormal lab results 12/18/18 12/18/18 12/18/18 Range/Units 14:59 15:11 15:11 MCHC 31 L (32-34) % Lymph % (Auto) 5.9 L (13.4-35.0) % Lymph # 0.4 L (1.2-5.4) K/mm3 Seg Neutrophils % 86.4 H (40.0-70.0) % Sodium 114 L* (137-145) mmol/L Potassium 7.0 H* (3.6-5.0) mmol/L Chloride 72.9 L (98-107) mmol/L Carbon Dioxide 21 L (22-30) mmol/L BUN 52 H (9-20) mg/dL Creatinine 2.6 H (0.8-1.5) mg/dL Glucose 1570 H* (75-100) mg/dL POC Glucose > 500 H (70-105) Hemoglobin A1c (4-6) % Uric Acid (3.5-7.6) mg/dL Magnesium (1.7-2.3) mg/dL Direct Bilirubin (0-0.2) mg/dL Alkaline Phosphatase (35-129) units/L Total Creatine Kinase (55-170) units/L Urine Creatinine (0.1-20.0) mg/dL 12/18/18 12/18/18 12/18/18 Range/Units 15:11 16:42 16:42 MCHC (32-34) % Lymph % (Auto) (13.4-35.0) % Lymph # (1.2-5.4) K/mm3 Seg Neutrophils % (40.0-70.0) % Sodium (137-145) mmol/L Potassium (3.6-5.0) mmol/L Chloride (98-107) mmol/L Carbon Dioxide (22-30) mmol/L BUN (9-20) mg/dL Creatinine (0.8-1.5) mg/dL Glucose (75-100) mg/dL POC Glucose (70-105) Hemoglobin A1c 16.1 H (4-6) % Uric Acid 9.1 H (3.5-7.6) mg/dL Magnesium 2.60 H (1.7-2.3) mg/dL Direct Bilirubin 0.3 H (0-0.2) mg/dL Alkaline Phosphatase 235 H (35-129) units/L Total Creatine Kinase 205 H (55-170) units/L Urine Creatinine (0.1-20.0) mg/dL 12/18/18 12/18/18 12/18/18 Range/Units 16:42 16:42 17:38 MCHC (32-34) % Lymph % (Auto) (13.4-35.0) % Lymph # (1.2-5.4) K/mm3 Seg Neutrophils % (40.0-70.0) % Sodium 114 L* 119 L* (137-145) mmol/L Potassium 6.8 H* 5.7 H (3.6-5.0) mmol/L Chloride 72.5 L 79.5 L (98-107) mmol/L Carbon Dioxide 20 L (22-30) mmol/L BUN 52 H 50 H (9-20) mg/dL Creatinine 2.5 H 2.4 H (0.8-1.5) mg/dL Glucose 1561 H* 1321 H* (75-100) mg/dL POC Glucose (70-105) Hemoglobin A1c (4-6) % Uric Acid (3.5-7.6) mg/dL Magnesium 2.60 H (1.7-2.3) mg/dL Direct Bilirubin (0-0.2) mg/dL Alkaline Phosphatase (35-129) units/L Total Creatine Kinase (55-170) units/L Urine Creatinine (0.1-20.0) mg/dL 12/18/18 12/18/18 12/18/18 Range/Units 19:25 19:54 20:33 MCHC (32-34) % Lymph % (Auto) (13.4-35.0) % Lymph # (1.2-5.4) K/mm3 Seg Neutrophils % (40.0-70.0) % Sodium 132 L D (137-145) mmol/L Potassium (3.6-5.0) mmol/L Chloride 88.7 L (98-107) mmol/L Carbon Dioxide (22-30) mmol/L BUN 48 H (9-20) mg/dL Creatinine 2.4 H (0.8-1.5) mg/dL Glucose 864 H* (75-100) mg/dL POC Glucose > 500 H (70-105) Hemoglobin A1c (4-6) % Uric Acid (3.5-7.6) mg/dL Magnesium (1.7-2.3) mg/dL Direct Bilirubin (0-0.2) mg/dL Alkaline Phosphatase (35-129) units/L Total Creatine Kinase (55-170) units/L Urine Creatinine 24.7 H (0.1-20.0) mg/dL 12/18/18 12/18/18 12/18/18 Range/Units 20:33 21:06 22:07 MCHC (32-34) % Lymph % (Auto) (13.4-35.0) % Lymph # (1.2-5.4) K/mm3 Seg Neutrophils % (40.0-70.0) % Sodium (137-145) mmol/L Potassium (3.6-5.0) mmol/L Chloride (98-107) mmol/L Carbon Dioxide (22-30) mmol/L BUN (9-20) mg/dL Creatinine (0.8-1.5) mg/dL Glucose (75-100) mg/dL POC Glucose > 500 H > 500 H (70-105) Hemoglobin A1c (4-6) % Uric Acid (3.5-7.6) mg/dL Magnesium 2.80 H (1.7-2.3) mg/dL Direct Bilirubin (0-0.2) mg/dL Alkaline Phosphatase (35-129) units/L Total Creatine Kinase (55-170) units/L Urine Creatinine (0.1-20.0) mg/dL 12/18/18 12/18/18 12/18/18 Range/Units 23:05 23:07 23:54 MCHC (32-34) % Lymph % (Auto) (13.4-35.0) % Lymph # (1.2-5.4) K/mm3 Seg Neutrophils % (40.0-70.0) % Sodium 135 L (137-145) mmol/L Potassium (3.6-5.0) mmol/L Chloride 94.8 L (98-107) mmol/L Carbon Dioxide (22-30) mmol/L BUN 46 H (9-20) mg/dL Creatinine 2.4 H (0.8-1.5) mg/dL Glucose 582 H* (75-100) mg/dL POC Glucose > 500 H > 500 H (70-105) Hemoglobin A1c (4-6) % Uric Acid (3.5-7.6) mg/dL Magnesium (1.7-2.3) mg/dL Direct Bilirubin (0-0.2) mg/dL Alkaline Phosphatase (35-129) units/L Total Creatine Kinase (55-170) units/L Urine Creatinine (0.1-20.0) mg/dL 12/19/18 12/19/18 12/19/18 Range/Units 00:54 01:11 02:11 MCHC (32-34) % Lymph % (Auto) (13.4-35.0) % Lymph # (1.2-5.4) K/mm3 Seg Neutrophils % (40.0-70.0) % Sodium (137-145) mmol/L Potassium (3.6-5.0) mmol/L Chloride (98-107) mmol/L Carbon Dioxide (22-30) mmol/L BUN 46 H (9-20) mg/dL Creatinine 2.4 H (0.8-1.5) mg/dL Glucose 419 H (75-100) mg/dL POC Glucose 423 H 328 H (70-105) Hemoglobin A1c (4-6) % Uric Acid (3.5-7.6) mg/dL Magnesium (1.7-2.3) mg/dL Direct Bilirubin (0-0.2) mg/dL Alkaline Phosphatase (35-129) units/L Total Creatine Kinase (55-170) units/L Urine Creatinine (0.1-20.0) mg/dL 12/19/18 12/19/18 12/19/18 Range/Units 03:34 04:23 04:58 MCHC (32-34) % Lymph % (Auto) (13.4-35.0) % Lymph # (1.2-5.4) K/mm3 Seg Neutrophils % (40.0-70.0) % Sodium (137-145) mmol/L Potassium (3.6-5.0) mmol/L Chloride (98-107) mmol/L Carbon Dioxide (22-30) mmol/L BUN 46 H (9-20) mg/dL Creatinine 2.4 H (0.8-1.5) mg/dL Glucose 196 H (75-100) mg/dL POC Glucose 259 H 211 H (70-105) Hemoglobin A1c (4-6) % Uric Acid (3.5-7.6) mg/dL Magnesium (1.7-2.3) mg/dL Direct Bilirubin (0-0.2) mg/dL Alkaline Phosphatase (35-129) units/L Total Creatine Kinase (55-170) units/L Urine Creatinine (0.1-20.0) mg/dL 12/19/18 12/19/18 12/19/18 Range/Units 06:13 07:31 09:18 MCHC (32-34) % Lymph % (Auto) (13.4-35.0) % Lymph # (1.2-5.4) K/mm3 Seg Neutrophils % (40.0-70.0) % Sodium (137-145) mmol/L Potassium (3.6-5.0) mmol/L Chloride (98-107) mmol/L Carbon Dioxide (22-30) mmol/L BUN (9-20) mg/dL Creatinine (0.8-1.5) mg/dL Glucose (75-100) mg/dL POC Glucose 191 H 152 H 216 H (70-105) Hemoglobin A1c (4-6) % Uric Acid (3.5-7.6) mg/dL Magnesium (1.7-2.3) mg/dL Direct Bilirubin (0-0.2) mg/dL Alkaline Phosphatase (35-129) units/L Total Creatine Kinase (55-170) units/L Urine Creatinine (0.1-20.0) mg/dL 12/19/18 12/19/18 12/19/18 Range/Units 09:28 10:28 12:05 MCHC (32-34) % Lymph % (Auto) (13.4-35.0) % Lymph # (1.2-5.4) K/mm3 Seg Neutrophils % (40.0-70.0) % Sodium (137-145) mmol/L Potassium (3.6-5.0) mmol/L Chloride (98-107) mmol/L Carbon Dioxide 21 L (22-30) mmol/L BUN 43 H (9-20) mg/dL Creatinine 2.1 H (0.8-1.5) mg/dL Glucose 190 H (75-100) mg/dL POC Glucose 238 H 318 H (70-105) Hemoglobin A1c (4-6) % Uric Acid (3.5-7.6) mg/dL Magnesium (1.7-2.3) mg/dL Direct Bilirubin (0-0.2) mg/dL Alkaline Phosphatase (35-129) units/L Total Creatine Kinase (55-170) units/L Urine Creatinine (0.1-20.0) mg/dL - Imaging and Cardiology Chest x-ray: image reviewed (no evidence of acute lung disease) Assessment and Plan 73 y/o male admitted with HHNK, pseudohyponatremia and renal failure 1. Patient needs more volume than what was given overnight. Will Give an additional 2 liters bolus now. 2. Wean Robert for MAPS >65 3. Agree with transition to subQ insulin therapy. 4. Will transition to floor once pressor requirement has ceased. CCT 31 minutes.
[2018-12-19] MEDS: SODIUM CHLORIDE 0.9% 1000 ML 1,000 ML IV SCH ×2 (15:47→17:00)
[2018-12-19] MEDS: INSULIN NPH/REGULAR 70/30 INJ SUB-Q SCH (16:05)
[2018-12-20] MEDS: PHENYLEPHRINE 100 MG in SODIUM CHLORIDE 0.9% 90 ML IV SCH ×2 (02:01→02:21)
[2018-12-20 05:20] LABS: Calcium 7.8 mg/dL (8.4-10.2)
[2018-12-20] MEDS: INSULIN NPH/REGULAR 70/30 INJ SUB-Q SCH ×3 (08:30→20:10)
[2018-12-20] MEDS: INSULIN LISPRO 100 UNIT/ML SUB-Q SCH ×4 (08:30→21:58)
[2018-12-20] MEDS: MAGNESIUM OXIDE 400 MG TAB PO SCH (09:09)
[2018-12-20] MEDS: ASPIRIN EC 81 MG TAB PO SCH (09:09)
[2018-12-20] MEDS: CLOPIDOGREL 75 MG TAB PO SCH (09:09)
[2018-12-20] MEDS: HEPARIN 5,000 UNIT/1 ML VIAL SUB-Q SCH ×2 (09:10→21:54)
[2018-12-20] MEDS: PANTOPRAZOLE 40 MG TAB PO SCH ×2 (09:10→21:57)
[2018-12-20] MEDS: TAMSULOSIN 0.4 MG CAP PO SCH (09:10)
--- NOTE | 2018-12-20 09:17 | Progress Note ---
Assessment and Plan Assessment and plan: --Hyperosmolar nonketotic hyperglycemia; s/p insulin drip, Hemoglobin A1c is more than 16 Diabetic education, diabetic nutrition education Possible home health nurse at discharge for disease monitoring --New onset diabetes mellitus; uncontrolled Accu-Chek sliding scale coverage ED diet Adjust Novolin 70/30 dose 20 units bid --Hypertension/hypovolemic shock; Remains on vasopressin, titrate to systolic blood pressure more than 100 --Severe hyponatremia present on admission pseudohyponatremia secondary to hyperglycemia Resolved sodium within normal limits --Acute kidney injury; vasomotor nephropathy Renal function improving ,creatinine trending down Gentle hydration, monitor renal function, avoid nephrotoxins Nephrology consult if needed --Chronic systolic congestive heart failure EF 35-40% in 2014 Check echocardiogram if needed, continue heart failure medications --History of coronary artery disease status post PCI in 2013 Continue cardiac medications, cardiology evaluation if needed --Dyslipidemia; continue statin, low cholesterol diet --History of BPH; resume Flomax --Morbid obesity; advised diet modification and exercise as tolerated and weight reduction when medically stable --DVT prophylaxis; heparin renal dose --Full CODE STATUS Monitor closely and adjust management as needed Cr Care time 32 min The high probability of a clinically significant, sudden or life threatening deterioration of the [metabolic, renal, cardiac, endocrine system](s) required my full and direct attention, intervention and personal management. The aggregate critical care time was [32] minutes. This time is in addition to time spent performing reported procedures but includes the following: [] Data Review and interpretation [] Patient assessment and monitoring of vital signs [] Documentation [] Medication orders and management History patient is weaned off vasopressor May be transferred to medical floor Plan of care reviewed with the patient and the nurse History Interval history: Patient seen and examined medical records reviewed Patient's blood sugars are uncontrolled Adjust insulin, remains hypotensive on vasopressors The patient is alert awake oriented No new complaints Vital signs noted Hospitalist Physical - Constitutional Vitals: Temp Pulse Resp BP Pulse Ox 98.9 F 77 25 H 135/78 99 12/20/18 00:00 12/20/18 06:21 12/20/18 06:21 12/20/18 06:21 12/20/18 06:21 General appearance: Present: no acute distress, well-nourished - EENT Eyes: Present: PERRL, EOM intact - Neck Neck: Present: supple, normal ROM - Respiratory Respiratory effort: normal Respiratory: bilateral: diminished, negative: rales, rhonchi, wheezing - Cardiovascular Rhythm: regular Heart Sounds: Present: S1 & S2 - Extremities Extremities: no ischemia, pulses intact - Abdominal General gastrointestinal: soft, non-tender, non-distended, normal bowel sounds - Integumentary Integumentary: Present: clear, warm - Psychiatric Psychiatric: appropriate mood/affect, cooperative - Neurologic Neurologic: CNII-XII intact, moves all extremities Results - Labs CBC & Chem 7: 12/18/18 15:11 12/20/18 04:50 Labs: Laboratory Last Values WBC 6.4 K/mm3 (4.5-11.0) 12/18/18 15:11 RBC 4.82 M/mm3 (3.65-5.03) 12/18/18 15:11 Hgb 13.8 gm/dl (11.8-15.2) 12/18/18 15:11 Hct 44.0 % (35.5-45.6) 12/18/18 15:11 MCV 91 fl (84-94) 12/18/18 15:11 MCH 29 pg (28-32) 12/18/18 15:11 MCHC 31 % (32-34) L 12/18/18 15:11 RDW 13.7 % (13.2-15.2) 12/18/18 15:11 Plt Count 193 K/mm3 (140-440) 12/18/18 15:11 Lymph % (Auto) 5.9 % (13.4-35.0) L 12/18/18 15:11 [place] % (Auto) 7.2 % (0.0-7.3) 12/18/18 15:11 Eos % (Auto) 0.1 % (0.0-4.3) 12/18/18 15:11 Baso % (Auto) 0.4 % (0.0-1.8) 12/18/18 15:11 Lymph # 0.4 K/mm3 (1.2-5.4) L 12/18/18 15:11 [place] # 0.5 K/mm3 (0.0-0.8) 12/18/18 15:11 Eos # 0.0 K/mm3 (0.0-0.4) 12/18/18 15:11 Baso # 0.0 K/mm3 (0.0-0.1) 12/18/18 15:11 Seg Neutrophils % 86.4 % (40.0-70.0) H 12/18/18 15:11 Seg Neutrophils # 5.5 K/mm3 (1.8-7.7) 12/18/18 15:11 VBG pH 7.386 (7.320-7.420) 12/18/18 15:11 Sodium 137 mmol/L (137-145) 12/20/18 04:50 Potassium 3.9 mmol/L (3.6-5.0) 12/20/18 04:50 Chloride 104.0 mmol/L (98-107) 12/20/18 04:50 Carbon Dioxide 25 mmol/L (22-30) 12/20/18 04:50 12 mmol/L 12/20/18 04:50 BUN 26 mg/dL (9-20) H 12/20/18 04:50 1.6 mg/dL (0.8-1.5) H 12/20/18 04:50 Estimated GFR 52 ml/min 12/20/18 04:50 16 % 12/20/18 04:50 Glucose 245 mg/dL (75-100) H 12/20/18 04:50 POC Glucose 277 (70-105) H 12/19/18 21:32 16.1 % (4-6) H 12/18/18 16:42 9.1 mg/dL (3.5-7.6) H 12/18/18 16:42 Calcium 7.8 mg/dL (8.4-10.2) L D 12/20/18 04:50 Phosphorus 2.90 mg/dL (2.5-4.5) 12/20/18 04:50 Magnesium 1.90 mg/dL (1.7-2.3) 12/20/18 04:50 1.20 mg/dL (0.1-1.2) 12/18/18 15:11 0.3 mg/dL (0-0.2) H 12/18/18 15:11 0.9 mg/dL 12/18/18 15:11 AST 30 units/L (5-40) 12/18/18 15:11 ALT 41 units/L (7-56) 12/18/18 15:11 235 units/L (35-129) H 12/18/18 15:11 205 units/L (55-170) H 12/18/18 16:42 7.6 g/dL (6.3-8.2) 12/18/18 15:11 4.0 g/dL (3.9-5) 12/18/18 15:11 1.1 % 12/18/18 15:11 TSH 1.590 mlU/mL (0.270-4.200) 12/18/18 16:42 Colorless (Yellow) 12/18/18 19:25 Clear (Clear) 12/18/18 19:25 6.0 (5.0-7.0) 12/18/18 19:25 Ur Specific [place] 1.020 (1.003-1.030) 12/18/18 19:25 <15 mg/dl mg/dL (Negative) 12/18/18 19:25 >=500 mg/dL (Negative) 12/18/18 19:25 Neg mg/dL (Negative) 12/18/18 19:25 Neg (Negative) 12/18/18 19:25 Neg (Negative) 12/18/18 19:25 Neg (Negative) 12/18/18 19:25 < 2.0 mg/dL (<2.0) 12/18/18 19:25 Ur Leukocyte Esterase Neg (Negative) 12/18/18 19:25 < 1.0 /HPF (0.0-6.0) 12/18/18 19:25 1.0 /HPF (0.0-6.0) 12/18/18 19:25 Few /HPF 12/18/18 19:25 466 Mosm/kg 12/18/18 19:25 24.7 mg/dL (0.1-20.0) H 12/18/18 19:25 30 mmol/L 12/18/18 19:25 Active Medications - Current Medications Current Medications: Generic Name Dose Route Start Last Admin Trade Name Freq PRN Reason Stop Dose Admin Acetaminophen 650 mg 12/18/18 19:57 Tylenol PO Q4H PRN Pain MILD(1-3)/Fever >100.5/KIM Aspirin 81 mg 12/18/18 20:00 12/20/18 09:09 Halfprin Ec PO 81 mg DAILY [facility] Administration Atorvastatin Calcium 40 mg 12/18/18 22:00 12/19/18 21:31 Lipitor PO 40 mg QHS [facility] Administration Carvedilol 12.5 mg 12/18/18 22:00 12/19/18 21:26 Coreg PO Not Given BID [facility] Clopidogrel Bisulfate 75 mg 12/19/18 10:00 12/20/18 09:09 Plavix PO 75 mg DAILY [facility] Administration Famotidine 20 mg 12/18/18 22:00 12/19/18 21:25 Pepcid IV 20 mg BID [facility] Administration Heparin Sodium (Porcine) 5,000 unit 12/19/18 10:00 12/20/18 09:10 Heparin SUB-Q 5,000 unit Q12HR [facility] Administration Hydromorphone HCl 0.5 mg 12/18/18 19:57 Dilaudid IV Q3H PRN Pain , Severe (7-10) Sodium Chloride 1,000 mls @ 150 mls/hr 12/18/18 23:00 12/19/18 06:23 Nacl 0.9% 1000 Ml IV Infused DIRECT [facility] Infusion Phenylephrine HCl 100 mg/ 100 mls @ 3 mls/hr 12/19/18 03:00 12/20/18 09:00 Sodium Chloride IV 70 mcg/min TITR [facility] 4.2 mls/hr Titration Protocol 50 MCG/MIN Sodium Chloride 1,000 mls @ 0 mls/hr 12/19/18 15:00 12/19/18 17:00 Nacl 0.9% 1000 Ml IV 12/20/18 15:01 999 mls/hr ONCE [facility] Administration As Directed Insulin Human Isoph/Insulin Regular 15 unit 12/19/18 17:00 12/20/18 08:30 Humulin 70/30 SUB-Q 15 unit BIDDIAB [facility] Administration Insulin Human Lispro 0 unit 12/19/18 11:30 12/20/18 08:30 Humalog SUB-Q 6 unit ACHS [facility] Administration Protocol Magnesium Oxide 400 mg 12/19/18 10:00 12/20/18 09:09 Mag-Ox PO 400 mg QDAY [facility] Administration Ondansetron HCl 4 mg 12/18/18 19:57 Zofran IV Q8H PRN Nausea And Vomiting Pantoprazole Sodium 40 mg 12/18/18 22:00 12/20/18 09:10 Protonix PO 40 mg BID [facility] Administration Sodium Chloride 10 ml 12/18/18 22:00 12/20/18 09:11 Sodium Chloride Flush Syringe 10 Ml IV 10 ml BID [facility] Administration Sodium Chloride 10 ml 12/18/18 19:57 Sodium Chloride Flush Syringe 10 Ml IV PRN PRN LINE FLUSH Tamsulosin HCl 0.4 mg 12/19/18 10:00 12/20/18 09:10 Flomax PO 0.4 mg QDAY [facility] Administration Tizanidine HCl 4 mg 12/18/18 19:59 Zanaflex PO TID PRN Spasms Nutrition/Malnutrition Assess - Dietary Evaluation Nutrition/Malnutrition Findings: Nutrition Notes Start: 12/19/18 10:47 Freq: Status: Active Protocol: Document 12/19/18 10:47 ANASTASIA (Rec: 12/19/18 11:03 ANASTASIA [id number]) Nutrition Notes Need for Assessment generated from: MD Order,Education Initial or Follow up Brief Note Current Diagnosis Diabetes,Hypertension, Hyperlipidemia Other Pertinent Diagnosis DKA, h/o CVA, heart disease Current Diet NPO Subjective/Other Information MD consult for Diabetes Education. Pt denied ever having DM diagnosis. RD still provided consistent CHO diet education, stating it can help control blood glucose with or without a diabetes diagnosis. Pt stated he thought that he wasn't supposed to eat carbohydrates at all because they would make him gain weight. RD explained that carbohydrates are an essential source of energy for the body , they just need to be eaten in the correct proportions. RD explained how to find carbohydrates amounts on the food label and how to determine how many servings of carbohydrates are within a specific serving of food. Also , pt was encouraged to pair his carbohydrate selections with fat and/or protein sources. #1 Nutrition Diagnosis Food and nutrition-related knowledge deficit Etiology No prior knowledge on how to manage diabetes via the diet As Evidenced by Signs and Symptoms Pt report of not knowing how to count carbohydrates, A1C of 16.1 Nutrition Intervention Teaching Recipient Patient Learning Readiness Good Teaching Methods Discussion,Handout Response to Teaching Verbalize understanding Education Handouts Provided AND's Carbohydrate Counting For People With Diabetes and Using Nutrition Labels: Carbohydrates Barriers to Learning Age related RD phone number provided Yes Patient aware of follow up options Yes Revisit per MD consult or patient Sign Off request:
[2018-12-20] MEDS: FAMOTIDINE 20 MG/2 ML INJ IV SCH (11:03)
[2018-12-20] MEDS: carvediloL 12.5 MG TAB PO SCH ×2 (11:53→21:57)
--- NOTE | 2018-12-20 12:29 | Progress Note ---
Assessment and Plan 73 y/o male admitted with HHNK, pseudohyponatremia and renal failure 1. Will give 2 more liters now. 2. Wean Robert for MAPS >65 3. Agree with transition to subQ insulin therapy. 4. Will transition to floor once pressor requirement has ceased. CCT 31 minutes. Subjective Date of service: 12/20/18 Interval history: Patient still hypotensive. Completely asymptomatic. Now down to 10 of robert. STarting dose is 50. Objective - Constitutional Vitals: Vital Signs - 12hr 12/20/18 12/20/18 12/20/18 00:30 00:41 00:51 Pulse Rate 69 76 62 Pulse Rate [ From Monitor] Respiratory 20 21 18 Rate Blood Pressure 116/81 116/81 116/81 O2 Sat by Pulse 99 98 99 Oximetry 12/20/18 12/20/18 12/20/18 01:01 01:11 01:21 Pulse Rate 62 65 64 Pulse Rate [ From Monitor] Respiratory 19 18 20 Rate Blood Pressure 116/81 116/81 116/81 O2 Sat by Pulse 100 99 100 Oximetry 12/20/18 12/20/18 12/20/18 01:31 01:41 01:51 Pulse Rate 67 91 H 70 Pulse Rate [ From Monitor] Respiratory 18 17 22 Rate Blood Pressure 70/32 70/32 70/32 O2 Sat by Pulse 99 93 98 Oximetry 12/20/18 12/20/18 12/20/18 02:00 02:11 02:21 Pulse Rate 74 74 69 Pulse Rate [ From Monitor] Respiratory 19 18 18 Rate Blood Pressure 104/74 104/74 67/30 O2 Sat by Pulse 97 98 99 Oximetry 12/20/18 12/20/18 12/20/18 02:30 02:41 02:51 Pulse Rate 85 72 65 Pulse Rate [ From Monitor] Respiratory 22 21 28 H Rate Blood Pressure 71/44 137/84 79/32 O2 Sat by Pulse 99 99 99 Oximetry 12/20/18 12/20/18 12/20/18 03:00 03:11 03:21 Pulse Rate 68 71 70 Pulse Rate [ From Monitor] Respiratory 13 25 H 21 Rate Blood Pressure 143/83 130/68 130/74 O2 Sat by Pulse 99 98 99 Oximetry 12/20/18 12/20/18 12/20/18 03:30 03:40 03:51 Pulse Rate 64 73 83 Pulse Rate [ From Monitor] Respiratory 22 16 23 Rate Blood Pressure 137/77 137/77 143/85 O2 Sat by Pulse 99 99 95 Oximetry 12/20/18 12/20/18 12/20/18 04:00 04:11 04:21 Pulse Rate 71 65 79 Pulse Rate [ From Monitor] Respiratory 20 18 18 Rate Blood Pressure 135/72 135/72 136/81 O2 Sat by Pulse 100 100 99 Oximetry 12/20/18 12/20/18 12/20/18 04:31 04:41 04:51 Pulse Rate 77 80 102 H Pulse Rate [ From Monitor] Respiratory 18 20 20 Rate Blood Pressure 115/59 115/59 106/63 O2 Sat by Pulse 99 99 99 Oximetry 12/20/18 12/20/18 12/20/18 05:00 05:10 05:21 Pulse Rate 76 74 71 Pulse Rate [ From Monitor] Respiratory 18 19 20 Rate Blood Pressure 109/67 109/67 121/81 O2 Sat by Pulse 99 99 98 Oximetry 12/20/18 12/20/18 12/20/18 05:30 05:41 05:51 Pulse Rate 72 76 76 Pulse Rate [ From Monitor] Respiratory 18 21 18 Rate Blood Pressure 122/69 121/81 120/65 O2 Sat by Pulse 99 98 99 Oximetry 12/20/18 12/20/18 12/20/18 06:00 06:11 06:21 Pulse Rate 75 75 77 Pulse Rate [ From Monitor] Respiratory 21 21 25 H Rate Blood Pressure 132/78 120/65 135/78 O2 Sat by Pulse 100 99 99 Oximetry 12/20/18 12/20/18 12/20/18 06:30 06:41 06:51 Pulse Rate 80 87 88 Pulse Rate [ From Monitor] Respiratory 20 22 20 Rate Blood Pressure 130/81 135/78 137/79 O2 Sat by Pulse 99 100 98 Oximetry 12/20/18 12/20/18 12/20/18 07:00 07:11 07:21 Pulse Rate 75 70 74 Pulse Rate [ From Monitor] Respiratory 20 19 20 Rate Blood Pressure 145/81 137/79 137/77 O2 Sat by Pulse 100 99 98 Oximetry 12/20/18 12/20/18 12/20/18 07:31 07:41 07:50 Pulse Rate 75 78 73 Pulse Rate [ From Monitor] Respiratory 20 25 H 26 H Rate Blood Pressure 138/102 137/77 138/102 O2 Sat by Pulse 99 99 100 Oximetry 12/20/18 12/20/18 12/20/18 08:00 08:01 08:11 Pulse Rate 76 85 Pulse Rate [ 72 From Monitor] Respiratory 18 19 13 Rate Blood Pressure 128/98 117/50 O2 Sat by Pulse 97 99 97 Oximetry 12/20/18 12/20/18 12/20/18 08:21 08:30 08:41 Pulse Rate 84 82 73 Pulse Rate [ From Monitor] Respiratory 13 22 21 Rate Blood Pressure 144/97 131/79 144/97 O2 Sat by Pulse 97 97 96 Oximetry 12/20/18 12/20/18 12/20/18 08:51 09:00 09:11 Pulse Rate 84 81 82 Pulse Rate [ From Monitor] Respiratory 16 12 26 H Rate Blood Pressure 122/83 115/74 122/83 O2 Sat by Pulse 100 97 98 Oximetry 12/20/18 12/20/18 12/20/18 09:21 09:31 09:41 Pulse Rate 76 68 78 Pulse Rate [ From Monitor] Respiratory 17 21 27 H Rate Blood Pressure 64/36 98/38 64/36 O2 Sat by Pulse 98 96 96 Oximetry 12/20/18 12/20/18 12/20/18 09:51 10:00 10:01 Pulse Rate 79 76 80 Pulse Rate [ From Monitor] Respiratory 15 21 Rate Blood Pressure 118/67 120/64 O2 Sat by Pulse 98 98 Oximetry 12/20/18 12/20/18 12/20/18 10:11 10:21 10:30 Pulse Rate 86 78 79 Pulse Rate [ From Monitor] Respiratory 19 13 13 Rate Blood Pressure 118/67 111/74 102/68 O2 Sat by Pulse 94 96 99 Oximetry 12/20/18 12/20/18 12/20/18 10:41 10:50 11:00 Pulse Rate 81 83 76 Pulse Rate [ From Monitor] Respiratory 27 H 25 H 20 Rate Blood Pressure 111/74 102/68 116/68 O2 Sat by Pulse 98 98 95 Oximetry 12/20/18 11:53 Pulse Rate 84 Pulse Rate [ From Monitor] Respiratory Rate Blood Pressure 98/53 O2 Sat by Pulse Oximetry - Labs CBC & Chem 7: 12/18/18 15:11 12/20/18 04:50 Labs: Abnormal lab results 12/19/18 12/19/1819 Range/Units 03:34 12:05 16:09 BUN (9-20) mg/dL Creatinine (0.8-1.5) mg/dL Glucose (75-100) mg/dL POC Glucose 259 H 318 H 309 H (70-105) Calcium (8.4-10.2) mg/dL 12/19/18 12/20/18 12/20/18 Range/Units 21:32 04:50 08:31 BUN 26 H (9-20) mg/dL Creatinine 1.6 H (0.8-1.5) mg/dL Glucose 245 H (75-100) mg/dL POC Glucose 277 H 277 H (70-105) Calcium 7.8 L D (8.4-10.2) mg/dL 12/20/18 Range/Units 11:50 BUN (9-20) mg/dL Creatinine (0.8-1.5) mg/dL Glucose (75-100) mg/dL POC Glucose 327 H (70-105) Calcium (8.4-10.2) mg/dL Medications & Allergies - Medications Allergies/Adverse Reactions: Allergies No Known Allergies Allergy (Verified 04/06/14 09:15) Home Medications: Home Medications Medication Instructions Recorded Confirmed Last Taken Type Magnesium Oxide [Mag-Ox] 400 mg PO QDAY #30 tablet 02/26/14 10/08/17 04/06/17 Rx Tizanidine HCl [tiZANidine] 4 mg PO PRN PRN 03/21/14 10/08/17 04/06/17 History Pantoprazole [Protonix TAB] 40 mg PO BID #30 tablet 11/26/15 10/08/17 04/06/17 Rx Lisinopril [Zestril TAB] 20 mg PO BID 04/07/17 10/08/17 04/07/17 History Aspirin [Lo-Dose Aspirin EC] 81 mg PO DAILY 10/08/17 10/08/17 Unknown History Atorvastatin Calcium [Lipitor] 40 mg PO DAILY 10/08/17 10/08/17 Unknown History Carvedilol [Coreg] 12.5 mg PO BID 10/08/17 10/08/17 Unknown History Clopidogrel Bisulfate [Plavix] 75 mg PO DAILY 10/08/17 10/08/17 Unknown History Ferrous Sulfate [Ferrous Sulfate 324 mg PO DAILY 10/08/17 10/08/17 Unknown History 324 MG] Spironolactone [Aldactone] 12.5 mg PO QDAY 10/08/17 10/08/17 Unknown History Tamsulosin [Flomax] 0.4 mg PO QDAY 10/08/17 10/08/17 Unknown History Active Medications: Generic Name Dose Route Start Last Admin Trade Name Freq PRN Reason Stop Dose Admin Acetaminophen 650 mg 12/18/18 19:57 Tylenol PO Q4H PRN Pain MILD(1-3)/Fever >100.5/KIM Aspirin 81 mg 12/18/18 20:00 12/20/18 09:09 Halfprin Ec PO 81 mg DAILY ANIA Administration Atorvastatin Calcium 40 mg 12/18/18 22:00 12/19/18 21:31 Lipitor PO 40 mg QHS ANIA Administration Carvedilol 12.5 mg 12/18/18 22:00 12/20/18 11:53 Coreg PO Not Given BID ANIA Clopidogrel Bisulfate 75 mg 12/19/18 10:00 12/20/18 09:09 Plavix PO 75 mg DAILY ANIA Administration Famotidine 20 mg 12/18/18 22:00 12/20/18 11:03 Pepcid IV Not Given BID ANIA Heparin Sodium (Porcine) 5,000 unit 12/19/18 10:00 12/20/18 09:10 Heparin SUB-Q 5,000 unit Q12HR ANIA Administration Hydromorphone HCl 0.5 mg 12/18/18 19:57 Dilaudid IV Q3H PRN Pain , Severe (7-10) Sodium Chloride 1,000 mls @ 150 mls/hr 12/18/18 23:00 12/19/18 06:23 Nacl 0.9% 1000 Ml IV Infused DIRECT ANIA Infusion Phenylephrine HCl 100 mg/ 100 mls @ 3 mls/hr 12/19/18 03:00 12/20/18 12:11 Sodium Chloride IV 10 mcg/min TITR ANIA 0.6 mls/hr Titration Protocol 50 MCG/MIN Sodium Chloride 1,000 mls @ 0 mls/hr 12/19/18 15:00 12/19/18 17:00 Nacl 0.9% 1000 Ml IV 12/20/18 15:01 999 mls/hr ONCE ANIA Administration As Directed Insulin Human Isoph/Insulin Regular 15 unit 12/19/18 17:00 12/20/18 08:30 Humulin 70/30 SUB-Q 15 unit BIDDIAB ANIA Administration Insulin Human Lispro 0 unit 12/19/18 11:30 12/20/18 12:09 Humalog SUB-Q 8 unit ACHS ANIA Administration Protocol Magnesium Oxide 400 mg 12/19/18 10:00 12/20/18 09:09 Mag-Ox PO 400 mg QDAY ANIA Administration Ondansetron HCl 4 mg 12/18/18 19:57 Zofran IV Q8H PRN Nausea And Vomiting Pantoprazole Sodium 40 mg 12/18/18 22:00 12/20/18 09:10 Protonix PO 40 mg BID ANIA Administration Sodium Chloride 10 ml 12/18/18 22:00 12/20/18 09:11 Sodium Chloride Flush Syringe 10 Ml IV 10 ml BID ANIA Administration Sodium Chloride 10 ml 12/18/18 19:57 Sodium Chloride Flush Syringe 10 Ml IV PRN PRN LINE FLUSH Tamsulosin HCl 0.4 mg 12/19/18 10:00 12/20/18 09:10 Flomax PO 0.4 mg QDAY ANIA Administration Tizanidine HCl 4 mg 12/18/18 19:59 Zanaflex PO TID PRN Spasms
[2018-12-20] MEDS: SODIUM CHLORIDE 0.9% 1000 ML 1,000 ML IV SCH ×2 (12:42→13:48)
--- NOTE | 2018-12-20 15:06 | Progress Note ---
Assessment and Plan - Patient Problems (1) Acute kidney failure with tubular necrosis Current Visit: Yes Status: Acute Plan to address problem: RU secondary to ATN secondary to volume depletion, hypovolemic shock in the setting of hyperglycemic hyperosmolar state. Renal function improving s/p multiple IV NS boluses and glucose control, cont IV NS at 75ml/hr along with vasopressor support with neosynephrine to maintain MAP > 65mmhg. avoid nephrtoxi ns, NSAIDs, IV contrast. hold antihypertensive meds for now. (2) Hypotension Current Visit: Yes Status: Acute Plan to address problem: cont IV NS, vasopressor support to maintain MAP > 65mmHg (3) Diabetes mellitus with hyperglycemia Current Visit: Yes Status: Acute Plan to address problem: pt is on IV insulin gtt, glucose control as per primary attending (4) Hyperkalemia Current Visit: Yes Status: Acute Plan to address problem: secondary to transcellular shift in the setting of uncontrolled DM/Hyperglyce levar. K improved with glucose control and on IVF (5) Hyponatremia Current Visit: Yes Status: Acute Plan to address problem: likely spurious secondary to hyperglycemia, improving with glucose control (6) Essential hypertension Current Visit: No Status: Chronic Plan to address problem: currently hypotensive, requiring vasopressors. cont to hold antihypertensive meds for now Subjective Date of service: 12/20/18 Principal diagnosis: RU Interval history: Patient awake, alert, in no acute distress, remains on vasopressor support with neosynephrine Objective - Vital Signs Vital signs: Vital Signs - 12hr 12/20/18 12/20/18 12/20/18 03:11 03:21 03:30 Temperature Pulse Rate 71 70 64 Pulse Rate [ From Monitor] Respiratory 25 H 21 22 Rate Respiratory Rate [Right Hip ] Respiratory Rate [Right Lower Abdomen] Blood Pressure 130/68 130/74 137/77 O2 Sat by Pulse 98 99 99 Oximetry 12/20/18 12/20/18 12/20/18 03:40 03:51 04:00 Temperature Pulse Rate 73 83 71 Pulse Rate [ From Monitor] Respiratory 16 23 20 Rate Respiratory Rate [Right Hip ] Respiratory Rate [Right Lower Abdomen] Blood Pressure 137/77 143/85 135/72 O2 Sat by Pulse 99 95 100 Oximetry 12/20/18 12/20/18 12/20/18 04:11 04:21 04:31 Temperature Pulse Rate 65 79 77 Pulse Rate [ From Monitor] Respiratory 18 18 18 Rate Respiratory Rate [Right Hip ] Respiratory Rate [Right Lower Abdomen] Blood Pressure 135/72 136/81 115/59 O2 Sat by Pulse 100 99 99 Oximetry 12/20/18 12/20/18 12/20/18 04:41 04:51 05:00 Temperature Pulse Rate 80 102 H 76 Pulse Rate [ From Monitor] Respiratory 20 20 18 Rate Respiratory Rate [Right Hip ] Respiratory Rate [Right Lower Abdomen] Blood Pressure 115/59 106/63 109/67 O2 Sat by Pulse 99 99 99 Oximetry 12/20/18 12/20/18 12/20/18 05:10 05:21 05:30 Temperature Pulse Rate 74 71 72 Pulse Rate [ From Monitor] Respiratory 19 20 18 Rate Respiratory Rate [Right Hip ] Respiratory Rate [Right Lower Abdomen] Blood Pressure 109/67 121/81 122/69 O2 Sat by Pulse 99 98 99 Oximetry 12/20/18 12/20/18 12/20/18 05:41 05:51 06:00 Temperature Pulse Rate 76 76 75 Pulse Rate [ From Monitor] Respiratory 21 18 21 Rate Respiratory Rate [Right Hip ] Respiratory Rate [Right Lower Abdomen] Blood Pressure 121/81 120/65 132/78 O2 Sat by Pulse 98 99 100 Oximetry 12/20/18 12/20/18 12/20/18 06:11 06:21 06:30 Temperature Pulse Rate 75 77 80 Pulse Rate [ From Monitor] Respiratory 21 25 H 20 Rate Respiratory Rate [Right Hip ] Respiratory Rate [Right Lower Abdomen] Blood Pressure 120/65 135/78 130/81 O2 Sat by Pulse 99 99 99 Oximetry 12/20/18 12/20/18 12/20/18 06:41 06:51 07:00 Temperature Pulse Rate 87 88 75 Pulse Rate [ From Monitor] Respiratory 22 20 20 Rate Respiratory Rate [Right Hip ] Respiratory Rate [Right Lower Abdomen] Blood Pressure 135/78 137/79 145/81 O2 Sat by Pulse 100 98 100 Oximetry 12/20/18 12/20/18 12/20/18 07:11 07:21 07:31 Temperature Pulse Rate 70 74 75 Pulse Rate [ From Monitor] Respiratory 19 20 20 Rate Respiratory Rate [Right Hip ] Respiratory Rate [Right Lower Abdomen] Blood Pressure 137/79 137/77 138/102 O2 Sat by Pulse 99 98 99 Oximetry 12/20/18 12/20/18 12/20/18 07:41 07:50 08:00 Temperature Pulse Rate 78 73 Pulse Rate [ 72 From Monitor] Respiratory 25 H 26 H 18 Rate Respiratory Rate [Right Hip ] Respiratory Rate [Right Lower Abdomen] Blood Pressure 137/77 138/102 O2 Sat by Pulse 99 100 97 Oximetry 12/20/18 12/20/18 12/20/18 08:01 08:11 08:21 Temperature Pulse Rate 76 85 84 Pulse Rate [ From Monitor] Respiratory 19 13 13 Rate Respiratory Rate [Right Hip ] Respiratory Rate [Right Lower Abdomen] Blood Pressure 128/98 117/50 144/97 O2 Sat by Pulse 99 97 97 Oximetry 12/20/18 12/20/18 12/20/18 08:30 08:41 08:51 Temperature Pulse Rate 82 73 84 Pulse Rate [ From Monitor] Respiratory 22 21 16 Rate Respiratory Rate [Right Hip ] Respiratory Rate [Right Lower Abdomen] Blood Pressure 131/79 144/97 122/83 O2 Sat by Pulse 97 96 100 Oximetry 12/20/18 12/20/18 12/20/18 09:00 09:11 09:21 Temperature Pulse Rate 81 82 76 Pulse Rate [ From Monitor] Respiratory 12 26 H 17 Rate Respiratory Rate [Right Hip ] Respiratory Rate [Right Lower Abdomen] Blood Pressure 115/74 122/83 64/36 O2 Sat by Pulse 97 98 98 Oximetry 12/20/18 12/20/18 12/20/18 09:31 09:41 09:51 Temperature Pulse Rate 68 78 79 Pulse Rate [ From Monitor] Respiratory 21 27 H 15 Rate Respiratory Rate [Right Hip ] Respiratory Rate [Right Lower Abdomen] Blood Pressure 98/38 64/36 118/67 O2 Sat by Pulse 96 96 98 Oximetry 12/20/18 12/20/18 12/20/18 10:00 10:01 10:11 Temperature Pulse Rate 76 80 86 Pulse Rate [ From Monitor] Respiratory 21 19 Rate Respiratory 18 Rate [Right Hip ] Respiratory 18 Rate [Right Lower Abdomen] Blood Pressure 120/64 118/67 O2 Sat by Pulse 98 94 Oximetry 12/20/18 12/20/18 12/20/18 10:21 10:30 10:41 Temperature Pulse Rate 78 79 81 Pulse Rate [ From Monitor] Respiratory 13 13 27 H Rate Respiratory Rate [Right Hip ] Respiratory Rate [Right Lower Abdomen] Blood Pressure 111/74 102/68 111/74 O2 Sat by Pulse 96 99 98 Oximetry 12/20/18 12/20/18 12/20/18 10:50 11:00 11:11 Temperature Pulse Rate 83 76 80 Pulse Rate [ From Monitor] Respiratory 25 H 20 16 Rate Respiratory Rate [Right Hip ] Respiratory Rate [Right Lower Abdomen] Blood Pressure 102/68 116/68 109/60 O2 Sat by Pulse 98 95 97 Oximetry 12/20/18 12/20/18 12/20/18 11:21 11:30 11:41 Temperature Pulse Rate 78 87 87 Pulse Rate [ From Monitor] Respiratory 12 15 10 L Rate Respiratory Rate [Right Hip ] Respiratory Rate [Right Lower Abdomen] Blood Pressure 111/58 98/53 98/53 O2 Sat by Pulse 100 100 98 Oximetry 12/20/18 12/20/18 12/20/18 11:51 11:53 12:00 Temperature 97.8 F Pulse Rate 95 H 84 Pulse Rate [ 95 H From Monitor] Respiratory 21 22 Rate Respiratory Rate [Right Hip ] Respiratory Rate [Right Lower Abdomen] Blood Pressure 98/53 98/53 O2 Sat by Pulse 71 L 95 Oximetry 12/20/18 12/20/18 12/20/18 12:01 12:11 12:21 Temperature Pulse Rate 95 H 88 93 H Pulse Rate [ From Monitor] Respiratory 22 22 25 H Rate Respiratory Rate [Right Hip ] Respiratory Rate [Right Lower Abdomen] Blood Pressure 98/53 98/53 89/53 O2 Sat by Pulse 85 Oximetry 12/20/18 12/20/18 12/20/18 12:30 12:41 12:51 Temperature Pulse Rate 92 H 94 H 92 H Pulse Rate [ From Monitor] Respiratory 22 18 22 Rate Respiratory Rate [Right Hip ] Respiratory Rate [Right Lower Abdomen] Blood Pressure 86/52 86/52 77/42 O2 Sat by Pulse 68 L 95 97 Oximetry 12/20/18 13:00 Temperature Pulse Rate 78 Pulse Rate [ From Monitor] Respiratory 21 Rate Respiratory Rate [Right Hip ] Respiratory Rate [Right Lower Abdomen] Blood Pressure 81/45 O2 Sat by Pulse 98 Oximetry - General Appearance General appearance: well-developed, well-nourished, appears stated age EENT: ATNC, PERRL, mucous membranes moist Neck: no JVD Respiratory: Present: Clear to Ascultation Cardiology: regular, S1S2 Gastrointestinal: normoactive bowel sounds Integumentary: no rash, other (no edema ) Neurologic: no focal deficit, alert and oriented x3, strength 5/5, CN 3-12 intact Psychiatric: mood/affect appropriate, cooperative - Lab 12/18/18 15:11 12/20/18 04:50 Most recent lab results Calcium 7.8 mg/dL (8.4-10.2) L D 12/20/18 04:50 Phosphorus 2.90 mg/dL (2.5-4.5) 12/20/18 04:50 Magnesium 1.90 mg/dL (1.7-2.3) 12/20/18 04:50 24.7 mg/dL (0.1-20.0) H 12/18/18 19:25 30 mmol/L 12/18/18 19:25 Medications & Allergies - Medications Allergies/Adverse Reactions: Allergies No Known Allergies Allergy (Verified 04/06/14 09:15) Home Medications: Home Medications Medication Instructions Recorded Confirmed Last Taken Type Magnesium Oxide [Mag-Ox] 400 mg PO QDAY #30 tablet 02/26/14 10/08/17 04/06/17 Rx Tizanidine HCl [tiZANidine] 4 mg PO PRN PRN 03/21/14 10/08/17 04/06/17 History Pantoprazole [Protonix TAB] 40 mg PO BID #30 tablet 11/26/15 10/08/17 04/06/17 Rx Lisinopril [Zestril TAB] 20 mg PO BID 04/07/17 10/08/17 04/07/17 History Aspirin [Lo-Dose Aspirin EC] 81 mg PO DAILY 10/08/17 10/08/17 Unknown History Atorvastatin Calcium [Lipitor] 40 mg PO DAILY 10/08/17 10/08/17 Unknown History Carvedilol [Coreg] 12.5 mg PO BID 10/08/17 10/08/17 Unknown History Clopidogrel Bisulfate [Plavix] 75 mg PO DAILY 10/08/17 10/08/17 Unknown History Ferrous Sulfate [Ferrous Sulfate 324 mg PO DAILY 10/08/17 10/08/17 Unknown History 324 MG] Spironolactone [Aldactone] 12.5 mg PO QDAY 10/08/17 10/08/17 Unknown History Tamsulosin [Flomax] 0.4 mg PO QDAY 10/08/17 10/08/17 Unknown History Active Medications: Generic Name Dose Route Start Last Admin Trade Name Tigre PRN Reason Stop Dose Admin Acetaminophen 650 mg 12/18/18 19:57 Tylenol PO Q4H PRN Pain MILD(1-3)/Fever >100.5/KIM Aspirin 81 mg 12/18/18 20:00 12/20/18 09:09 Halfprin Ec PO 81 mg DAILY ANIA Administration Atorvastatin Calcium 40 mg 12/18/18 22:00 12/19/18 21:31 Lipitor PO 40 mg QHS ANIA Administration Carvedilol 12.5 mg 12/18/18 22:00 12/20/18 11:53 Coreg PO Not Given BID ANIA Clopidogrel Bisulfate 75 mg 12/19/18 10:00 12/20/18 09:09 Plavix PO 75 mg DAILY ANIA Administration Famotidine 20 mg 12/18/18 22:00 12/20/18 11:03 Pepcid IV Not Given BID ANIA Heparin Sodium (Porcine) 5,000 unit 12/19/18 10:00 12/20/18 09:10 Heparin SUB-Q 5,000 unit Q12HR ANIA Administration Hydromorphone HCl 0.5 mg 12/18/18 19:57 Dilaudid IV Q3H PRN Pain , Severe (7-10) Sodium Chloride 1,000 mls @ 150 mls/hr 12/18/18 23:00 12/19/18 06:23 Nacl 0.9% 1000 Ml IV Infused DIRECT ANIA Infusion Phenylephrine HCl 100 mg/ 100 mls @ 3 mls/hr 12/19/18 03:00 12/20/18 13:15 Sodium Chloride IV 40 mcg/min TITR ANIA 2.4 mls/hr Titration Protocol 50 MCG/MIN Sodium Chloride 1,000 mls @ 0 mls/hr 12/20/18 13:00 12/20/18 13:48 Nacl 0.9% 1000 Ml IV 12/21/18 13:01 999 mls/hr ONCE ANIA Administration As Directed Insulin Human Isoph/Insulin Regular 15 unit 12/19/18 17:00 12/20/18 08:30 Humulin 70/30 SUB-Q 15 unit BIDDIAB ANIA Administration Insulin Human Lispro 0 unit 12/19/18 11:30 12/20/18 12:09 Humalog SUB-Q 8 unit ACHS ANIA Administration Protocol Magnesium Oxide 400 mg 12/19/18 10:00 12/20/18 09:09 Mag-Ox PO 400 mg QDAY ANIA Administration Ondansetron HCl 4 mg 12/18/18 19:57 Zofran IV Q8H PRN Nausea And Vomiting Pantoprazole Sodium 40 mg 12/18/18 22:00 12/20/18 09:10 Protonix PO 40 mg BID ANIA Administration Sodium Chloride 10 ml 12/18/18 22:00 12/20/18 09:11 Sodium Chloride Flush Syringe 10 Ml IV 10 ml BID ANIA Administration Sodium Chloride 10 ml 12/18/18 19:57 Sodium Chloride Flush Syringe 10 Ml IV PRN PRN LINE FLUSH Tamsulosin HCl 0.4 mg 12/19/18 10:00 12/20/18 09:10 Flomax PO 0.4 mg QDAY ANIA Administration Tizanidine HCl 4 mg 12/18/18 19:59 Zanaflex PO TID PRN Spasms
[2018-12-21] MEDS: INSULIN LISPRO 100 UNIT/ML SUB-Q SCH ×4 (08:22→21:49)
[2018-12-21] MEDS: INSULIN NPH/REGULAR 70/30 INJ SUB-Q SCH ×2 (08:24→17:41)
[2018-12-21 08:25] LABS: BUN/Creatinine Ratio 12; Blood Urea Nitrogen 15 mg/dL (9-20); Calcium 8.1 mg/dL (8.4-10.2); Hemolysis Index 4
[2018-12-21] MEDS ORDERED: INSULIN NPH/REGULAR 70/30 INJ SUB-Q ONE (09:00)
[2018-12-21] MEDS: carvediloL 12.5 MG TAB PO SCH ×2 (09:16→21:40)
[2018-12-21] MEDS: PANTOPRAZOLE 40 MG TAB PO SCH ×2 (09:16→21:39)
[2018-12-21] MEDS: CLOPIDOGREL 75 MG TAB PO SCH (09:17)
[2018-12-21] MEDS: TAMSULOSIN 0.4 MG CAP PO SCH (09:17)
[2018-12-21] MEDS: ASPIRIN EC 81 MG TAB PO SCH (09:17)
[2018-12-21] MEDS: HEPARIN 5,000 UNIT/1 ML VIAL SUB-Q SCH ×2 (09:17→21:40)
[2018-12-21] MEDS: MAGNESIUM OXIDE 400 MG TAB PO SCH (09:17)
--- NOTE | 2018-12-21 09:32 | Progress Note ---
Assessment and Plan - Patient Problems (1) Acute kidney failure with tubular necrosis Current Visit: Yes Status: Acute Plan to address problem: RU secondary to ATN secondary to volume depletion, hypovolemic shock in the setting of hyperglycemic hyperosmolar state. Renal function improving s/p multiple IV NS boluses and glucose control. patient with adequate po intake, can d/c IVF. now off vasopressors. avoid nephrtoxins, NSAIDs, IV contrast. hold antihypertensive meds for now. (2) Hypotension Current Visit: Yes Status: Acute Plan to address problem: cont IV NS, vasopressor support to maintain MAP > 65mmHg (3) Diabetes mellitus with hyperglycemia Current Visit: Yes Status: Acute Plan to address problem: pt is on IV insulin gtt, glucose control as per primary attending (4) Hyperkalemia Current Visit: Yes Status: Acute Plan to address problem: secondary to transcellular shift in the setting of uncontrolled DM/Hyperglycemia. K improved with glucose control and on IVF (5) Hyponatremia Current Visit: Yes Status: Acute Plan to address problem: likely spurious secondary to hyperglycemia, improving with glucose control (6) Essential hypertension Current Visit: No Status: Chronic Plan to address problem: currently hypotensive, requiring vasopressors. cont to hold antihypertensive meds for now Subjective Date of service: 12/21/18 Principal diagnosis: RU Interval history: Patient awake, alert, in no acute distress, now with stabilized BP, off vasopressors Objective - Vital Signs Vital signs: Vital Signs - 12hr 12/20/18 12/20/18 12/20/18 21:45 21:57 22:00 Pulse Rate 93 H 93 H 93 H Pulse Rate [ From Monitor] Pulse Rate [ Left Dorsalis Pedis] Pulse Rate [ Right Dorsalis Pedis] Respiratory 9 L 19 Rate Respiratory 17 Rate [Right Hip ] Blood Pressure 84/51 65/16 89/47 O2 Sat by Pulse Oximetry 12/20/18 12/20/18 12/20/18 22:15 22:31 22:45 Pulse Rate 97 H 96 H 92 H Pulse Rate [ From Monitor] Pulse Rate [ Left Dorsalis Pedis] Pulse Rate [ Right Dorsalis Pedis] Respiratory 16 13 24 Rate Respiratory Rate [Right Hip ] Blood Pressure 89/47 89/47 89/47 O2 Sat by Pulse Oximetry 12/20/18 12/20/18 12/20/18 23:00 23:15 23:26 Pulse Rate 83 92 H 93 H Pulse Rate [ From Monitor] Pulse Rate [ Left Dorsalis Pedis] Pulse Rate [ Right Dorsalis Pedis] Respiratory 20 24 9 L Rate Respiratory Rate [Right Hip ] Blood Pressure 97/53 97/53 97/53 O2 Sat by Pulse Oximetry 12/20/18 12/20/18 12/20/18 23:31 23:34 23:45 Pulse Rate 85 95 H 89 Pulse Rate [ From Monitor] Pulse Rate [ Left Dorsalis Pedis] Pulse Rate [ Right Dorsalis Pedis] Respiratory 13 16 18 Rate Respiratory Rate [Right Hip ] Blood Pressure 97/53 97/53 97/53 O2 Sat by Pulse Oximetry 12/20/18 12/20/18 12/21/18 23:50 23:54 00:00 Pulse Rate 88 86 Pulse Rate [ 75 72 From Monitor] Pulse Rate [ 75 Left Dorsalis Pedis] Pulse Rate [ 75 Right Dorsalis Pedis] Respiratory 18 20 18 Rate Respiratory Rate [Right Hip ] Blood Pressure 97/53 88/41 O2 Sat by Pulse 96 97 Oximetry 12/21/18 12/21/18 12/21/18 00:15 00:31 00:45 Pulse Rate 80 82 89 Pulse Rate [ From Monitor] Pulse Rate [ Left Dorsalis Pedis] Pulse Rate [ Right Dorsalis Pedis] Respiratory 20 22 19 Rate Respiratory Rate [Right Hip ] Blood Pressure 88/41 88/41 106/63 O2 Sat by Pulse Oximetry 12/21/18 12/21/18 12/21/18 01:01 01:15 01:31 Pulse Rate 114 H 87 82 Pulse Rate [ From Monitor] Pulse Rate [ Left Dorsalis Pedis] Pulse Rate [ Right Dorsalis Pedis] Respiratory 18 15 19 Rate Respiratory Rate [Right Hip ] Blood Pressure 88/41 142/76 106/63 O2 Sat by Pulse Oximetry 12/21/18 12/21/18 12/21/18 01:45 02:00 02:15 Pulse Rate 88 87 81 Pulse Rate [ From Monitor] Pulse Rate [ Left Dorsalis Pedis] Pulse Rate [ Right Dorsalis Pedis] Respiratory 17 16 21 Rate Respiratory Rate [Right Hip ] Blood Pressure 106/63 104/54 104/54 O2 Sat by Pulse Oximetry 12/21/18 12/21/18 12/21/18 02:31 02:45 03:00 Pulse Rate 90 90 85 Pulse Rate [ From Monitor] Pulse Rate [ Left Dorsalis Pedis] Pulse Rate [ Right Dorsalis Pedis] Respiratory 19 19 20 Rate Respiratory Rate [Right Hip ] Blood Pressure 104/54 104/54 95/53 O2 Sat by Pulse Oximetry 12/21/18 12/21/18 12/21/18 03:15 03:40 03:46 Pulse Rate 85 83 81 Pulse Rate [ From Monitor] Pulse Rate [ Left Dorsalis Pedis] Pulse Rate [ Right Dorsalis Pedis] Respiratory 16 19 20 Rate Respiratory Rate [Right Hip ] Blood Pressure 95/53 O2 Sat by Pulse Oximetry 12/21/18 12/21/18 12/21/18 04:00 04:16 04:30 Pulse Rate 93 H 84 81 Pulse Rate [ 83 From Monitor] Pulse Rate [ Left Dorsalis Pedis] Pulse Rate [ 83 Right Dorsalis Pedis] Respiratory 18 16 18 Rate Respiratory Rate [Right Hip ] Blood Pressure 99/43 99/43 99/43 O2 Sat by Pulse 97 Oximetry 12/21/18 12/21/18 12/21/18 04:46 05:00 05:16 Pulse Rate 80 78 83 Pulse Rate [ From Monitor] Pulse Rate [ Left Dorsalis Pedis] Pulse Rate [ Right Dorsalis Pedis] Respiratory 17 18 17 Rate Respiratory Rate [Right Hip ] Blood Pressure 99/43 112/69 112/69 O2 Sat by Pulse Oximetry 12/21/18 12/21/18 12/21/18 05:30 05:46 06:00 Pulse Rate 81 90 88 Pulse Rate [ From Monitor] Pulse Rate [ Left Dorsalis Pedis] Pulse Rate [ Right Dorsalis Pedis] Respiratory 18 13 19 Rate Respiratory Rate [Right Hip ] Blood Pressure 99/43 99/43 115/72 O2 Sat by Pulse Oximetry 12/21/18 12/21/18 12/21/18 06:16 06:30 06:46 Pulse Rate 90 82 75 Pulse Rate [ From Monitor] Pulse Rate [ Left Dorsalis Pedis] Pulse Rate [ Right Dorsalis Pedis] Respiratory 22 15 10 L Rate Respiratory Rate [Right Hip ] Blood Pressure 115/72 115/72 115/72 O2 Sat by Pulse Oximetry 12/21/18 12/21/18 12/21/18 07:00 07:16 07:30 Pulse Rate 82 81 96 H Pulse Rate [ From Monitor] Pulse Rate [ Left Dorsalis Pedis] Pulse Rate [ Right Dorsalis Pedis] Respiratory 17 16 20 Rate Respiratory Rate [Right Hip ] Blood Pressure 95/61 95/61 95/61 O2 Sat by Pulse 97 Oximetry 12/21/18 12/21/18 07:46 09:16 Pulse Rate 82 90 Pulse Rate [ From Monitor] Pulse Rate [ Left Dorsalis Pedis] Pulse Rate [ Right Dorsalis Pedis] Respiratory 18 Rate Respiratory Rate [Right Hip ] Blood Pressure 95/61 122/69 O2 Sat by Pulse 100 Oximetry - General Appearance General appearance: well-developed, well-nourished, appears stated age EENT: ATNC, PERRL, mucous membranes moist Neck: no JVD Respiratory: Present: Clear to Ascultation Cardiology: regular, S1S2 Gastrointestinal: normoactive bowel sounds Integumentary: no rash, other (no edema ) Neurologic: no focal deficit, alert and oriented x3, strength 5/5, CN 3-12 intact Psychiatric: mood/affect appropriate, cooperative - Lab 12/18/18 15:11 12/21/18 07:50 Most recent lab results Calcium 8.1 mg/dL (8.4-10.2) L 12/21/18 07:50 Phosphorus 2.90 mg/dL (2.5-4.5) 12/20/18 04:50 Magnesium 1.70 mg/dL (1.7-2.3) 12/21/18 07:50 Urine Creatinine 24.7 mg/dL (0.1-20.0) H 12/18/18 19:25 Urine Sodium 30 mmol/L 12/18/18 19:25 Medications & Allergies - Medications Allergies/Adverse Reactions: Allergies No Known Allergies Allergy (Verified 04/06/14 09:15) Home Medications: Home Medications Medication Instructions Recorded Confirmed Last Taken Type Pantoprazole [Protonix TAB] 40 mg PO BID #30 tablet 11/26/15 12/21/18 12/20/18 10:00 Rx Lisinopril [Zestril TAB] 40 mg PO DAILY 04/07/17 12/21/18 04/07/17 History Aspirin [Lo-Dose Aspirin EC] 81 mg PO DAILY 10/08/17 12/21/18 12/20/18 10:00 History Atorvastatin Calcium [Lipitor] 40 mg PO DAILY 10/08/17 12/21/18 12/20/18 22:00 History Carvedilol [Coreg] 12.5 mg PO BID 10/08/17 12/21/18 Unknown History Spironolactone [Aldactone] 12.5 mg PO QDAY 10/08/17 12/21/18 Unknown History Tamsulosin [Flomax] 0.4 mg PO QDAY 10/08/17 12/21/18 12/20/18 10:00 History hydroCHLOROthiazide [HCTZ] 25 mg PO DAILY 12/21/18 12/21/18 Unknown History Active Medications: Generic Name Dose Route Start Last Admin Trade Name Freq PRN Reason Stop Dose Admin Acetaminophen 650 mg 12/18/18 19:57 Tylenol PO Q4H PRN Pain MILD(1-3)/Fever >100.5/KIM Aspirin 81 mg 12/18/18 20:00 12/21/18 09:17 Halfprin Ec PO 81 mg DAILY ANIA Administration Atorvastatin Calcium 40 mg 12/18/18 22:00 12/20/18 21:53 Lipitor PO 40 mg QHS ANIA Administration Carvedilol 12.5 mg 12/18/18 22:00 12/21/18 09:16 Coreg PO 12.5 mg BID ANIA Administration Clopidogrel Bisulfate 75 mg 12/19/18 10:00 12/21/18 09:17 Plavix PO 75 mg DAILY ANIA Administration Heparin Sodium (Porcine) 5,000 unit 12/19/18 10:00 12/21/18 09:17 Heparin SUB-Q 5,000 unit Q12HR ANIA Administration Hydromorphone HCl 0.5 mg 12/18/18 19:57 Dilaudid IV Q3H PRN Pain , Severe (7-10) Phenylephrine HCl 100 mg/ 100 mls @ 3 mls/hr 12/19/18 03:00 12/20/18 18:15 Sodium Chloride IV 0 mcg/min TITR ANIA 0 mls/hr Titration Protocol 50 MCG/MIN Sodium Chloride 1,000 mls @ 0 mls/hr 12/20/18 13:00 12/20/18 13:48 Nacl 0.9% 1000 Ml IV 12/21/18 13:01 999 mls/hr ONCE ANIA Administration As Directed Insulin Human Isoph/Insulin Regular 26 unit 12/21/18 17:00 Humulin 70/30 SUB-Q BIDDIAB ANIA Insulin Human Lispro 0 unit 12/19/18 11:30 12/21/18 08:22 Humalog SUB-Q 8 unit ACHS ANIA Administration Protocol Magnesium Oxide 400 mg 12/19/18 10:00 12/21/18 09:17 Mag-Ox PO 400 mg QDAY ANIA Administration Ondansetron HCl 4 mg 12/18/18 19:57 Zofran IV Q8H PRN Nausea And Vomiting Pantoprazole Sodium 40 mg 12/18/18 22:00 12/21/18 09:16 Protonix PO 40 mg BID ANIA Administration Sodium Chloride 10 ml 12/18/18 22:00 12/21/18 09:18 Sodium Chloride Flush Syringe 10 Ml IV 10 ml BID ANIA Administration Sodium Chloride 10 ml 12/18/18 19:57 Sodium Chloride Flush Syringe 10 Ml IV PRN PRN LINE FLUSH Tamsulosin HCl 0.4 mg 12/19/18 10:00 12/21/18 09:17 Flomax PO 0.4 mg QDAY ANIA Administration Tizanidine HCl 4 mg 12/18/18 19:59 Zanaflex PO TID PRN Spasms
--- NOTE | 2018-12-21 10:22 | Progress Note ---
Assessment and Plan Assessment and plan: --Hyperosmolar nonketotic hyperglycemia; s/p insulin drip, Hemoglobin A1c is more than 16 Diabetic education, diabetic nutrition education Possible home health nurse at discharge for disease monitoring --New onset 2diabetes mellitus; uncontrolled Accu-Chek sliding scale coverage ED diet Adjust Novolin 70/30 dose 26 units bid --Hypertension/hypovolemic shock; Requiring pressors ,today blood pressure is reasonable level discontinue vasopressors, is if needed --Severe hyponatremia present on admission pseudohyponatremia secondary to hyperglycemia Resolved sodium within normal limits --Acute kidney injury; vasomotor nephropathy Renal function improving ,creatinine trending down Gentle hydration, monitor renal function, avoid nephrotoxins Nephrology consult if needed --Chronic systolic congestive heart failure EF 35-40% in 2014 Check echocardiogram if needed, continue heart failure medications --History of coronary artery disease status post PCI in 2013 Continue cardiac medications, cardiology evaluation if needed --Dyslipidemia; continue statin, low cholesterol diet --History of BPH; resume Flomax --DVT prophylaxis; heparin renal dose --Full CODE STATUS Monitor closely and adjust management as needed Cr Care time 32 min The high probability of a clinically significant, sudden or life threatening deterioration of the [metabolic, renal, cardiac, endocrine system](s) required my full and direct attention, intervention and personal management. The aggregate critical care time was [32] minutes. This time is in addition to time spent performing reported procedures but inc ludes the following: [] Data Review and interpretation [] Patient assessment and monitoring of vital signs [] Documentation [] Medication orders and management The stable to be transferred out of ICU to medical floor Plan of care reviewed with the patient and the nurse Disposition; discharged home tomorrow if stable History Interval history: Patient seen and examined medical records reviewed Patient feels better blood pressure seems reasonably controlled Off vaso pressors Blood sugars monitored controlled Patient has no new complaints vital signs stable Hospitalist Physical - Constitutional Vitals: Temp Pulse Resp BP Pulse Ox 97.4 F L 95 H 18 122/69 97 12/20/18 16:00 12/21/18 09:30 12/21/18 10:00 12/21/18 09:30 12/21/18 08:30 General appearance: Present: no acute distress, well-nourished - EENT Eyes: Present: PERRL, EOM intact - Neck Neck: Present: supple, normal ROM - Respiratory Respiratory effort: normal Respiratory: bilateral: diminished, negative: rales, rhonchi, wheezing - Cardiovascular Rhythm: regular Heart Sounds: Present: S1 & S2 - Extremities Extremities: no ischemia, No edema - Abdominal General gastrointestinal: soft, non-tender, non-distended, normal bowel sounds - Integumentary Integumentary: Present: clear, warm - Psychiatric Psychiatric: appropriate mood/affect, cooperative - Neurologic Neurologic: CNII-XII intact, moves all extremities Results - Labs CBC & Chem 7: 12/18/18 15:11 12/21/18 07:50 Labs: Laboratory Last Values WBC 6.4 K/mm3 (4.5-11.0) 12/18/18 15:11 RBC 4.82 M/mm3 (3.65-5.03) 12/18/18 15:11 Hgb 13.8 gm/dl (11.8-15.2) 12/18/18 15:11 Hct 44.0 % (35.5-45.6) 12/18/18 15:11 MCV 91 fl (84-94) 12/18/18 15:11 MCH 29 pg (28-32) 12/18/18 15:11 MCHC 31 % (32-34) L 12/18/18 15:11 RDW 13.7 % (13.2-15.2) 12/18/18 15:11 Plt Count 193 K/mm3 (140-440) 12/18/18 15:11 Lymph % (Auto) 5.9 % (13.4-35.0) L 12/18/18 15:11 [place] % (Auto) 7.2 % (0.0-7.3) 12/18/18 15:11 Eos % (Auto) 0.1 % (0.0-4.3) 12/18/18 15:11 Baso % (Auto) 0.4 % (0.0-1.8) 12/18/18 15:11 Lymph # 0.4 K/mm3 (1.2-5.4) L 12/18/18 15:11 [place] # 0.5 K/mm3 (0.0-0.8) 12/18/18 15:11 Eos # 0.0 K/mm3 (0.0-0.4) 12/18/18 15:11 Baso # 0.0 K/mm3 (0.0-0.1) 12/18/18 15:11 Seg Neutrophils % 86.4 % (40.0-70.0) H 12/18/18 15:11 Seg Neutrophils # 5.5 K/mm3 (1.8-7.7) 12/18/18 15:11 VBG pH 7.386 (7.320-7.420) 12/18/18 15:11 Sodium 140 mmol/L (137-145) 12/21/18 07:50 Potassium 4.0 mmol/L (3.6-5.0) 12/21/18 07:50 Chloride 104.4 mmol/L (98-107) 12/21/18 07:50 Carbon Dioxide 22 mmol/L (22-30) 12/21/18 07:50 Anion Gap 18 mmol/L 12/21/18 07:50 BUN 15 mg/dL (9-20) 12/21/18 07:50 Creatinine 1.3 mg/dL (0.8-1.5) 12/21/18 07:50 Estimated GFR > 60 ml/min 12/21/18 07:50 BUN/Creatinine Ratio 12 % 12/21/18 07:50 Glucose 249 mg/dL (75-100) H 12/21/18 07:50 POC Glucose 315 (70-105) H 12/21/18 07:35 Hemoglobin A1c 16.1 % (4-6) H 12/18/18 16:42 Uric Acid 9.1 mg/dL (3.5-7.6) H 12/18/18 16:42 Calcium 8.1 mg/dL (8.4-10.2) L 12/21/18 07:50 Phosphorus 2.90 mg/dL (2.5-4.5) 12/20/18 04:50 Magnesium 1.70 mg/dL (1.7-2.3) 12/21/18 07:50 Total Bilirubin 1.20 mg/dL (0.1-1.2) 12/18/18 15:11 Direct Bilirubin 0.3 mg/dL (0-0.2) H 12/18/18 15:11 Indirect Bilirubin 0.9 mg/dL 12/18/18 15:11 AST 30 units/L (5-40) 12/18/18 15:11 ALT 41 units/L (7-56) 12/18/18 15:11 Alkaline Phosphatase 235 units/L (35-129) H 12/18/18 15:11 Total Creatine Kinase 205 units/L (55-170) H 12/18/18 16:42 Total Protein 7.6 g/dL (6.3-8.2) 12/18/18 15:11 Albumin 4.0 g/dL (3.9-5) 12/18/18 15:11 Albumin/Globulin Ratio 1.1 % 12/18/18 15:11 TSH 1.590 mlU/mL (0.270-4.200) 12/18/18 16:42 Urine Color Colorless (Yellow) 12/18/18 19:25 Urine Turbidity Clear (Clear) 12/18/18 19:25 Urine pH 6.0 (5.0-7.0) 12/18/18 19:25 Ur Specific [place] 1.020 (1.003-1.030) 12/18/18 19:25 Urine Protein <15 mg/dl mg/dL (Negative) 12/18/18 19:25 Urine Glucose (UA) >=500 mg/dL (Negative) 12/18/18 19:25 Urine Ketones Neg mg/dL (Negative) 12/18/18 19:25 Urine Blood Neg (Negative) 12/18/18 19:25 Urine Nitrite Neg (Negative) 12/18/18 19:25 Urine Bilirubin Neg (Negative) 12/18/18 19:25 Urine Urobilinogen < 2.0 mg/dL (<2.0) 12/18/18 19:25 Ur Leukocyte Esterase Neg (Negative) 12/18/18 19:25 Urine WBC (Auto) < 1.0 /HPF (0.0-6.0) 12/18/18 19:25 Urine RBC (Auto) 1.0 /HPF (0.0-6.0) 12/18/18 19:25 Urine Mucus Few /HPF 12/18/18 19:25 Urine Osmolality 466 Mosm/kg 12/18/18 19:25 Urine Creatinine 24.7 mg/dL (0.1-20.0) H 12/18/18 19:25 Urine Sodium 30 mmol/L 12/18/18 19:25 Active Medications - Current Medications Current Medications: Generic Name Dose Route Start Last Admin Trade Name Freq PRN Reason Stop Dose Admin Acetaminophen 650 mg 12/18/18 19:57 Tylenol PO Q4H PRN Pain MILD(1-3)/Fever >100.5/KIM Aspirin 81 mg 12/18/18 20:00 12/21/18 09:17 Halfprin Ec PO 81 mg DAILY ANIA Administration Atorvastatin Calcium 40 mg 12/18/18 22:00 12/20/18 21:53 Lipitor PO 40 mg QHS ANIA Administration Carvedilol 12.5 mg 12/18/18 22:00 12/21/18 09:16 Coreg PO 12.5 mg BID ANIA Administration Clopidogrel Bisulfate 75 mg 12/19/18 10:00 12/21/18 09:17 Plavix PO 75 mg DAILY ANIA Administration Heparin Sodium (Porcine) 5,000 unit 12/19/18 10:00 12/21/18 09:17 Heparin SUB-Q 5,000 unit Q12HR ANIA Administration Hydromorphone HCl 0.5 mg 12/18/18 19:57 Dilaudid IV Q3H PRN Pain , Severe (7-10) Insulin Human Isoph/Insulin Regular 26 unit 12/21/18 17:00 Humulin 70/30 SUB-Q BIDDIAB ANIA Insulin Human Lispro 0 unit 12/19/18 11:30 12/21/18 08:22 Humalog SUB-Q 8 unit ACHS ANIA Administration Protocol Magnesium Oxide 400 mg 12/19/18 10:00 12/21/18 09:17 Mag-Ox PO 400 mg QDAY ANIA Administration Ondansetron HCl 4 mg 12/18/18 19:57 Zofran IV Q8H PRN Nausea And Vomiting Pantoprazole Sodium 40 mg 12/18/18 22:00 12/21/18 09:16 Protonix PO 40 mg BID ANIA Administration Sodium Chloride 10 ml 12/18/18 22:00 12/21/18 09:18 Sodium Chloride Flush Syringe 10 Ml IV 10 ml BID ANIA Administration Sodium Chloride 10 ml 12/18/18 19:57 Sodium Chloride Flush Syringe 10 Ml IV PRN PRN LINE FLUSH Tamsulosin HCl 0.4 mg 12/19/18 10:00 12/21/18 09:17 Flomax PO 0.4 mg QDAY ANIA Administration Tizanidine HCl 4 mg 12/18/18 19:59 Zanaflex PO TID PRN Spasms Nutrition/Malnutrition Assess - Dietary Evaluation Nutrition/Malnutrition Findings: Nutrition Notes Start: 12/19/18 10:47 Freq: Status: Active Protocol: Document 12/19/18 10:47 ANASTASIA (Rec: 12/19/18 11:03 [id number]) Nutrition Notes Need for Assessment generated from: MD Order,Education Initial or Follow up Brief Note Current Diagnosis Diabetes,Hypertension, Hyperlipidemia Other Pertinent Diagnosis DKA, h/o CVA, heart disease Current Diet NPO Subjective/Other Information MD consult for Diabetes Education. Pt denied ever having DM diagnosis. RD still provided consistent CHO diet education, stating it can help control blood glucose with or without a diabetes diagnosis. Pt stated he thought that he wasn't supposed to eat carbohydrates at all because they would make him gain weight. RD explained that carbohydrates are an essential source of energy for the body , they just need to be eaten in the correct proportions. RD explained how to find carbohydrates amounts on the food label and how to determine how many servings of carbohydrates are within a specific serving of food. Also , pt was encouraged to pair his carbohydrate selections with fat and/or protein sources. #1 Nutrition Diagnosis Food and nutrition-related knowledge deficit Etiology No prior knowledge on how to manage diabetes via the diet As Evidenced by Signs and Symptoms Pt report of not knowing how to count carbohydrates, A1C of 16.1 Nutrition Intervention Teaching Recipient Patient Learning Readiness Good Teaching Methods Discussion,Handout Response to Teaching Verbalize understanding Education Handouts Provided AND's Carbohydrate Counting For People With Diabetes and Using Nutrition Labels: Carbohydrates Barriers to Learning Age related RD phone number provided Yes Patient aware of follow up options Yes Revisit per MD consult or patient Sign Off request:
[2018-12-21 15:22] LABS: Bilirubin,Urine NEG (Negative); Blood,Urine NEG (Negative); Color,Urine Yellow (Yellow); Mucus,Urine FEW /HPF; Protein,Urine <15 mg/dL mg/dL (Negative); RBC,Urine < 1.0 /HPF (0.0-6.0); Urobilinogen,Urine < 2.0 mg/dL (<2.0); WBC,Urine < 1.0 /HPF (0.0-6.0)
--- NOTE | 2018-12-21 15:58 | Progress Note ---
Assessment and Plan Imp: 1. Volume depletion -> hypotension 2. HONK state 3. RU 4. Hyperkalemia 2/2 above, resolved 6. Hyponatremia 2/2 above, resolved Rec: 1. Pulmonary-moss he is stable and okay to discharge home; will sign off; please re-consult if new issues arise Plan of care reviewed w/ patient, he understands/agrees Subjective Date of service: 12/21/18 Principal diagnosis: RU Interval history: No events. On RA. No complaints. Active Medications Acetaminophen (Tylenol) 650 mg PO Q4H PRN PRN Reason: Pain MILD(1-3)/Fever >100.5/KIM Aspirin (Halfprin Ec) 81 mg PO DAILY [facility] Last Admin: 12/21/18 09:17 Dose: 81 mg Documented by: Atorvastatin Calcium (Lipitor) 40 mg PO QHS [facility] Last Admin: 12/20/18 21:53 Dose: 40 mg Documented by: Carvedilol (Coreg) 12.5 mg PO BID [facility] Last Admin: 12/21/18 09:16 Dose: 12.5 mg Documented by: Clopidogrel Bisulfate (Plavix) 75 mg PO DAILY [facility] Last Admin: 12/21/18 09:17 Dose: 75 mg Documented by: Heparin Sodium (Porcine) (Heparin) 5,000 unit SUB-Q Q12HR [facility] Last Admin: 12/21/18 09:17 Dose: 5,000 unit Documented by: Hydromorphone HCl (Dilaudid) 0.5 mg IV Q3H PRN PRN Reason: Pain , Severe (7-10) Insulin Human Isoph/Insulin Regular (Humulin 70/30) 26 unit SUB-Q BIDDIAB [facility] Insulin Human Lispro (Humalog) 0 unit SUB-Q ACHS [facility]; Protocol Last Admin: 12/21/18 12:24 Dose: 6 unit Documented by: Magnesium Oxide (Mag-Ox) 400 mg PO QDAY [facility] Last Admin: 12/21/18 09:17 Dose: 400 mg Documented by: Ondansetron HCl (Zofran) 4 mg IV Q8H PRN PRN Reason: Nausea And Vomiting Pantoprazole Sodium (Protonix) 40 mg PO BID [facility] Last Admin: 12/21/18 09:16 Dose: 40 mg Documented by: Tamsulosin HCl (Flomax) 0.4 mg PO QDAY [facility] Last Admin: 12/21/18 09:17 Dose: 0.4 mg Documented by: Tizanidine HCl (Zanaflex) 4 mg PO TID PRN PRN Reason: Spasms Objective Vital Signs - 12hr 12/21/18 12/21/18 12/21/18 04:00 04:16 04:30 Temperature Pulse Rate 93 H 84 81 Pulse Rate [ 83 From Monitor] Pulse Rate [ 83 Right Dorsalis Pedis] Respiratory 18 16 18 Rate Respiratory Rate [Right Hip ] Respiratory Rate [Right Lower Abdomen] Blood Pressure 99/43 99/43 99/43 O2 Sat by Pulse 97 Oximetry 12/21/18 12/21/18 12/21/18 04:46 05:00 05:16 Temperature Pulse Rate 80 78 83 Pulse Rate [ From Monitor] Pulse Rate [ Right Dorsalis Pedis] Respiratory 17 18 17 Rate Respiratory Rate [Right Hip ] Respiratory Rate [Right Lower Abdomen] Blood Pressure 99/43 112/69 112/69 O2 Sat by Pulse Oximetry 12/21/18 12/21/18 12/21/18 05:30 05:46 06:00 Temperature Pulse Rate 81 90 88 Pulse Rate [ From Monitor] Pulse Rate [ Right Dorsalis Pedis] Respiratory 18 13 19 Rate Respiratory Rate [Right Hip ] Respiratory Rate [Right Lower Abdomen] Blood Pressure 99/43 99/43 115/72 O2 Sat by Pulse Oximetry 12/21/18 12/21/18 12/21/18 06:16 06:30 06:46 Temperature Pulse Rate 90 82 75 Pulse Rate [ From Monitor] Pulse Rate [ Right Dorsalis Pedis] Respiratory 22 15 10 L Rate Respiratory Rate [Right Hip ] Respiratory Rate [Right Lower Abdomen] Blood Pressure 115/72 115/72 115/72 O2 Sat by Pulse Oximetry 12/21/18 12/21/18 12/21/18 07:00 07:16 07:30 Temperature Pulse Rate 82 81 96 H Pulse Rate [ From Monitor] Pulse Rate [ Right Dorsalis Pedis] Respiratory 17 16 20 Rate Respiratory Rate [Right Hip ] Respiratory Rate [Right Lower Abdomen] Blood Pressure 95/61 95/61 95/61 O2 Sat by Pulse 97 Oximetry 12/21/18 12/21/18 12/21/18 07:46 08:00 08:30 Temperature Pulse Rate 82 83 94 H Pulse Rate [ 81 From Monitor] Pulse Rate [ Right Dorsalis Pedis] Respiratory 18 12 13 Rate Respiratory Rate [Right Hip ] Respiratory Rate [Right Lower Abdomen] Blood Pressure 95/61 127/81 127/81 O2 Sat by Pulse 100 100 97 Oximetry 12/21/18 12/21/18 12/21/18 09:00 09:16 09:30 Temperature Pulse Rate 92 H 90 95 H Pulse Rate [ From Monitor] Pulse Rate [ Right Dorsalis Pedis] Respiratory 12 23 Rate Respiratory Rate [Right Hip ] Respiratory Rate [Right Lower Abdomen] Blood Pressure 127/81 122/69 122/69 O2 Sat by Pulse Oximetry 12/21/18 12/21/18 10:00 13:31 Temperature 98.0 F Pulse Rate 90 Pulse Rate [ From Monitor] Pulse Rate [ Right Dorsalis Pedis] Respiratory 21 18 Rate Respiratory 18 Rate [Right Hip ] Respiratory 18 Rate [Right Lower Abdomen] Blood Pressure 137/88 105/58 O2 Sat by Pulse 100 Oximetry Constitutional: no acute distress, alert Eyes: non-icteric ENT: oropharynx moist Neck: supple Effort: normal Ascultation: Bilateral: clear Cardiovascular: regular rate and rhythm (no mrg) Gastrointestinal: normoactive bowel sounds, soft, non-tender, non-distended Integumentary: normal Extremities: no cyanosis, no edema, pink and warm Neurologic: normal mental status, non-focal exam, pupils equal and round, CN II- XII normal Psychiatric: mood appropriate, affect normal CBC and BMP: 12/18/18 15:11 12/21/18 07:50 Abnormal lab findings: Abnormal Labs 12/18/18 12/18/18 12/18/18 14:59 15:11 15:11 MCHC 31 L Lymph % (Auto) 5.9 L Lymph # 0.4 L Seg Neutrophils % 86.4 H Sodium 114 L* Potassium 7.0 H* Chloride 72.9 L Carbon Dioxide 21 L BUN 52 H Creatinine 2.6 H Glucose 1570 H* POC Glucose > 500 H Hemoglobin A1c Uric Acid Calcium Magnesium Direct Bilirubin Alkaline Phosphatase Total Creatine Kinase Urine Creatinine 12/18/18 12/18/18 12/18/18 15:11 16:42 16:42 MCHC Lymph % (Auto) Lymph # Seg Neutrophils % Sodium Potassium Chloride Carbon Dioxide BUN Creatinine Glucose POC Glucose Hemoglobin A1c 16.1 H Uric Acid 9.1 H Calcium Magnesium 2.60 H Direct Bilirubin 0.3 H Alkaline Phosphatase 235 H Total Creatine Kinase 205 H Urine Creatinine 12/18/18 12/18/18 12/18/18 16:42 16:42 17:38 MCHC Lymph % (Auto) Lymph # Seg Neutrophils % Sodium 114 L* 119 L* Potassium 6.8 H* 5.7 H Chloride 72.5 L 79.5 L Carbon Dioxide 20 L BUN 52 H 50 H Creatinine 2.5 H 2.4 H Glucose 1561 H* 1321 H* POC Glucose Hemoglobin A1c Uric Acid Calcium Magnesium 2.60 H Direct Bilirubin Alkaline Phosphatase Total Creatine Kinase Urine Creatinine 12/18/18 12/18/18 12/18/18 19:25 19:54 20:33 MCHC Lymph % (Auto) Lymph # Seg Neutrophils % Sodium 132 L D Potassium Chloride 88.7 L Carbon Dioxide BUN 48 H Creatinine 2.4 H Glucose 864 H* POC Glucose > 500 H Hemoglobin A1c Uric Acid Calcium Magnesium Direct Bilirubin Alkaline Phosphatase Total Creatine Kinase Urine Creatinine 24.7 H 12/18/18 12/18/18 12/18/18 20:33 21:06 22:07 MCHC Lymph % (Auto) Lymph # Seg Neutrophils % Sodium Potassium Chloride Carbon Dioxide BUN Creatinine Glucose POC Glucose > 500 H > 500 H Hemoglobin A1c Uric Acid Calcium Magnesium 2.80 H Direct Bilirubin Alkaline Phosphatase Total Creatine Kinase Urine Creatinine 12/18/18 12/18/18 12/18/18 23:05 23:07 23:54 MCHC Lymph % (Auto) Lymph # Seg Neutrophils % Sodium 135 L Potassium Chloride 94.8 L Carbon Dioxide BUN 46 H Creatinine 2.4 H Glucose 582 H* POC Glucose > 500 H > 500 H Hemoglobin A1c Uric Acid Calcium Magnesium Direct Bilirubin Alkaline Phosphatase Total Creatine Kinase Urine Creatinine 12/19/18 12/19/18 12/19/18 00:54 01:11 02:11 MCHC Lymph % (Auto) Lymph # Seg Neutrophils % Sodium Potassium Chloride Carbon Dioxide BUN 46 H Creatinine 2.4 H Glucose 419 H POC Glucose 423 H 328 H Hemoglobin A1c Uric Acid Calcium Magnesium Direct Bilirubin Alkaline Phosphatase Total Creatine Kinase Urine Creatinine 12/19/18 12/19/18 12/19/18 03:34 04:23 04:58 MCHC Lymph % (Auto) Lymph # Seg Neutrophils % Sodium Potassium Chloride Carbon Dioxide BUN 46 H Creatinine 2.4 H Glucose 196 H POC Glucose 259 H 211 H Hemoglobin A1c Uric Acid Calcium Magnesium Direct Bilirubin Alkaline Phosphatase Total Creatine Kinase Urine Creatinine 12/19/18 12/19/18 12/19/18 06:13 07:31 09:18 MCHC Lymph % (Auto) Lymph # Seg Neutrophils % Sodium Potassium Chloride Carbon Dioxide BUN Creatinine Glucose POC Glucose 191 H 152 H 216 H Hemoglobin A1c Uric Acid Calcium Magnesium Direct Bilirubin Alkaline Phosphatase Total Creatine Kinase Urine Creatinine 12/19/18 12/19/18 12/19/18 09:28 10:28 12:05 MCHC Lymph % (Auto) Lymph # Seg Neutrophils % Sodium Potassium Chloride Carbon Dioxide 21 L BUN 43 H Creatinine 2.1 H Glucose 190 H POC Glucose 238 H 318 H Hemoglobin A1c Uric Acid Calcium Magnesium Direct Bilirubin Alkaline Phosphatase Total Creatine Kinase Urine Creatinine 12/19/18 12/19/18 12/20/18 16:09 21:32 04:50 MCHC Lymph % (Auto) Lymph # Seg Neutrophils % Sodium Potassium Chloride Carbon Dioxide BUN 26 H Creatinine 1.6 H Glucose 245 H POC Glucose 309 H 277 H Hemoglobin A1c Uric Acid Calcium 7.8 L D Magnesium Direct Bilirubin Alkaline Phosphatase Total Creatine Kinase Urine Creatinine 12/20/18 12/20/18 12/20/18 08:31 11:50 17:05 MCHC Lymph % (Auto) Lymph # Seg Neutrophils % Sodium Potassium Chloride Carbon Dioxide BUN Creatinine Glucose POC Glucose 277 H 327 H 261 H Hemoglobin A1c Uric Acid Calcium Magnesium Direct Bilirubin Alkaline Phosphatase Total Creatine Kinase Urine Creatinine 12/20/18 12/21/18 12/21/18 22:00 07:35 07:50 MCHC Lymph % (Auto) Lymph # Seg Neutrophils % Sodium Potassium Chloride Carbon Dioxide BUN Creatinine Glucose 249 H POC Glucose 314 H 315 H Hemoglobin A1c Uric Acid Calcium 8.1 L Magnesium Direct Bilirubin Alkaline Phosphatase Total Creatine Kinase Urine Creatinine 12/21/18 11:40 MCHC Lymph % (Auto) Lymph # Seg Neutrophils % Sodium Potassium Chloride Carbon Dioxide BUN Creatinine Glucose POC Glucose 259 H Hemoglobin A1c Uric Acid Calcium Magnesium Direct Bilirubin Alkaline Phosphatase Total Creatine Kinase Urine Creatinine Chest x-ray: report reviewed, image reviewed
[2018-12-22 05:31] LABS: BUN/Creatinine Ratio 11; Blood Urea Nitrogen 13 mg/dL (9-20); Calcium 8.3 mg/dL (8.4-10.2); Hemolysis Index 2
[2018-12-22] MEDS: INSULIN LISPRO 100 UNIT/ML SUB-Q SCH ×3 (08:28→16:53)
[2018-12-22] MEDS: INSULIN NPH/REGULAR 70/30 INJ SUB-Q SCH ×2 (08:29→17:05)
[2018-12-22] MEDS ORDERED: carvediloL 12.5 MG TAB PO SCH ×2 (08:38→10:00)
--- NOTE | 2018-12-22 09:27 | Progress Note ---
Assessment and Plan - Patient Problems (1) Acute kidney failure with tubular necrosis Current Visit: Yes Status: Acute Plan to address problem: RU secondary to ATN secondary to volume depletion, hypovolemic shock in the setting of hyperglycemic hyperosmolar state. Renal function improving s/p multiple IV NS boluses and glucose control. patient with adequate po intake, can d/c IVF. now off vasopressors. avoid nephrtoxins, NSAIDs, IV contrast. hold antihypertensive meds for now. stable for discharge from renal stand point (2) Hypotension Current Visit: Yes Status: Acute Plan to address problem: resolved, pt is now off vasopressors (3) Diabetes mellitus with hyperglycemia Current Visit: Yes Status: Acute Plan to address problem: pt is on IV insulin gtt, glucose control as per primary attending (4) Hyperkalemia Current Visit: Yes Status: Acute Plan to address problem: resolved (5) Hyponatremia Current Visit: Yes Status: Acute Plan to address problem: resolved (6) Essential hypertension Current Visit: No Status: Chronic Plan to address problem: BP remains borderline low. cont to hold antihypertensive meds for now Subjective Date of service: 12/22/18 Principal diagnosis: RU Interval history: Patient awake, alert, in no acute distress, now with stabilized BP, off vasopressors Objective - Vital Signs Vital signs: Vital Signs - 12hr 12/21/18 12/21/18 12/22/18 21:40 21:45 02:08 Temperature 97.8 F Pulse Rate 87 73 Respiratory 20 Rate Blood Pressure 114/81 94/64 O2 Sat by Pulse 98 100 Oximetry 12/22/18 07:11 Temperature 98.5 F Pulse Rate 78 Respiratory 18 Rate Blood Pressure 116/72 O2 Sat by Pulse 94 Oximetry - General Appearance General appearance: well-developed, well-nourished, appears stated age EENT: ATNC, PERRL, mucous membranes moist Neck: no JVD Respiratory: Present: Clear to Ascultation Cardiology: regular, S1S2 Gastrointestinal: normoactive bowel sounds Integumentary: no rash, other (no edema ) Neurologic: no focal deficit, alert and oriented x3, strength 5/5, CN 3-12 intact Psychiatric: mood/affect appropriate, cooperative - Lab 12/18/18 15:11 12/22/18 04:52 Most recent lab results Calcium 8.3 mg/dL (8.4-10.2) L 12/22/18 04:52 Phosphorus 2.90 mg/dL (2.5-4.5) 12/20/18 04:50 Magnesium 1.70 mg/dL (1.7-2.3) 12/22/18 04:52 Urine Creatinine 24.7 mg/dL (0.1-20.0) H 12/18/18 19:25 Urine Sodium 30 mmol/L 12/18/18 19:25 Medications & Allergies - Medications Allergies/Adverse Reactions: Allergies No Known Allergies Allergy (Verified 04/06/14 09:15) Home Medications: Home Medications Medication Instructions Recorded Confirmed Last Taken Type Pantoprazole [Protonix TAB] 40 mg PO BID #30 tablet 11/26/15 12/21/18 12/20/18 10:00 Rx Lisinopril [Zestril TAB] 40 mg PO DAILY 04/07/17 12/21/18 04/07/17 History Aspirin [Lo-Dose Aspirin EC] 81 mg PO DAILY 10/08/17 12/21/18 12/20/18 10:00 History Atorvastatin Calcium [Lipitor] 40 mg PO DAILY 10/08/17 12/21/18 12/20/18 22:00 History Carvedilol [Coreg] 12.5 mg PO BID 10/08/17 12/21/18 Unknown History Spironolactone [Aldactone] 12.5 mg PO QDAY 10/08/17 12/21/18 Unknown History Tamsulosin [Flomax] 0.4 mg PO QDAY 10/08/17 12/21/18 12/20/18 10:00 History hydroCHLOROthiazide [HCTZ] 25 mg PO DAILY 12/21/18 12/21/18 Unknown History Active Medications: Generic Name Dose Route Start Last Admin Trade Name Freq PRN Reason Stop Dose Admin Acetaminophen 650 mg 12/18/18 19:57 Tylenol PO Q4H PRN Pain MILD(1-3)/Fever >100.5/KIM Aspirin 81 mg 12/18/18 20:00 12/21/18 09:17 Halfprin Ec PO 81 mg DAILY ANIA Administration Atorvastatin Calcium 40 mg 12/18/18 22:00 12/21/18 21:39 Lipitor PO 40 mg QHS ANIA Administration Carvedilol 3.125 mg 12/22/18 08:40 Coreg PO BID ANIA Clopidogrel Bisulfate 75 mg 12/19/18 10:00 12/21/18 09:17 Plavix PO 75 mg DAILY [facility] Administration Heparin Sodium (Porcine) 5,000 unit 12/19/18 10:00 12/21/18 21:40 Heparin SUB-Q 5,000 unit Q12HR [facility] Administration Hydromorphone HCl 0.5 mg 12/18/18 19:57 Dilaudid IV Q3H PRN Pain , Severe (7-10) Sodium Chloride 1,000 mls @ 999 mls/hr 12/22/18 08:39 Nacl 0.9% 1000 Ml IV 12/22/18 09:39 BOLUS ONE Insulin Human Isoph/Insulin Regular 26 unit 12/21/18 17:00 12/22/18 08:29 Humulin 70/30 SUB-Q 26 unit BIDDIAB [facility] Administration Insulin Human Lispro 0 unit 12/19/18 11:30 12/22/18 08:28 Humalog SUB-Q 3 unit ACHS [facility] Administration Protocol Magnesium Oxide 400 mg 12/19/18 10:00 12/21/18 09:17 Mag-Ox PO 400 mg QDAY [facility] Administration Ondansetron HCl 4 mg 12/18/18 19:57 Zofran IV Q8H PRN Nausea And Vomiting Pantoprazole Sodium 40 mg 12/18/18 22:00 12/21/18 21:39 Protonix PO 40 mg BID [facility] Administration Tamsulosin HCl 0.4 mg 12/19/18 10:00 12/21/18 09:17 Flomax PO 0.4 mg QDAY [facility] Administration Tizanidine HCl 4 mg 12/18/18 19:59 12/21/18 21:39 Zanaflex PO 4 mg TID PRN Administration Spasms
[2018-12-22] MEDS: TAMSULOSIN 0.4 MG CAP PO SCH (09:29)
[2018-12-22] MEDS: PANTOPRAZOLE 40 MG TAB PO SCH (09:29)
[2018-12-22] MEDS: HEPARIN 5,000 UNIT/1 ML VIAL SUB-Q SCH (09:29)
[2018-12-22] MEDS: CLOPIDOGREL 75 MG TAB PO SCH (09:29)
[2018-12-22] MEDS: MAGNESIUM OXIDE 400 MG TAB PO SCH (09:29)
[2018-12-22] MEDS: ASPIRIN EC 81 MG TAB PO SCH (09:51)
[2018-12-22] MEDS ORDERED: SODIUM CHLORIDE 0.9% 1000 ML 1,000 ML IV ONE (10:00)
[2018-12-22] MEDS ORDERED: carvediloL 3.125 MG TAB PO SCH (10:00)
--- NOTE | 2018-12-22 10:16 | Discharge Summary ---
Providers - Providers Date of Admission: 12/18/18 16:41 Attending physician: JOVITA GRIFFIN MD 12/18/18 16:36 Consult to Physician [CONS] Urgent Comment: Dr. Estrada spoke with Dr. Leach @ [id number] Consulting Provider: EARLE LEACH Physician Instructions: Reason For Exam: dka 12/19/18 02:55 PICC Line Insertion [Consult to PICC Line RN] [CONS] Routine Reason For Exam: pressor Type Line:: PICC 12/19/18 06:46 Consult to Physician [CONS] Routine Comment: Consulting Provider: LATA HURST Physician Instructions: Reason For Exam: RU Primary care physician: JINNY GAONA Hospitalization Reason for admission: hhs Condition: Stable Hospital course: This is a 73-year-old gentleman. This patient is not known to this provider previously. He presents to the ER with his . He has a chief complaint of malaise, fatigue, weakness, increased thirst, increased urination. Symptoms present for the past 2 days. He denies physical pain. Symptoms constant. They are painless. They do not radiate anywhere. There were some physical exertion. It decreased with rest. He denies headache, neck pain, chest pain, abdominal pain, cough, urinary symptoms. --Hyperosmolar nonketotic hyperglycemia; s/p insulin drip, Hemoglobin A1c is more than 16 Diabetic education, diabetic nutrition education Possible home health nurse at discharge for disease monitoring --New onset 2diabetes mellitus; uncontrolled Accu-Chek sliding scale coverage ED diet Adjust Novolin 70/30 dose 26 units bid --Hypertension/hypovolemic shock; Requiring pressors ,today blood pressure is reasonable level discontinue vasopressors, is if needed --Severe hyponatremia present on admission pseudohyponatremia secondary to hyperglycemia Resolved sodium within normal limits --Acute kidney injury; vasomotor nephropathy Renal function improving ,creatinine trending down Gentle hydration, monitor renal function, avoid nephrotoxins Nephrology consult if needed --Chronic systolic congestive heart failure EF 35-40% in 2014 Check echocardiogram if needed, continue heart failure medications --History of coronary artery disease status post PCI in 2013 Continue cardiac medications, cardiology evaluation if needed --Dyslipidemia; continue statin, low cholesterol diet --History of BPH; resume Flomax Disposition: TO HOME OR SELFCARE Time spent for discharge: 35 mins Core Measure Documentation - Palliative Care Palliative Care/ Comfort Measures: Not Applicable - Core Measures Any of the following diagnoses?: none Exam - Physical Exam Narrative exam: General appearance: Present: no acute distress, well-nourished - EENT Eyes: Present: PERRL, EOM intact - Neck Neck: Present: supple, normal ROM - Respiratory Respiratory effort: normal Respiratory: bilateral: diminished, negative: rales, rhonchi, wheezing - Cardiovascular Rhythm: regular Heart Sounds: Present: S1 & S2 - Extremities Extremities: no ischemia, No edema - Abdominal General gastrointestinal: soft, non-tender, non-distended, normal bowel sounds - Integumentary Integumentary: Present: clear, warm - Psychiatric Psychiatric: appropriate mood/affect, cooperative - Neurologic Neurologic: CNII-XII intact, moves all extremities - Constitutional Vitals: Temp Pulse Resp BP Pulse Ox 98.5 F 78 18 116/72 94 12/22/18 07:11 12/22/18 07:11 12/22/18 07:11 12/22/18 07:11 12/22/18 07:11 Plan Activity: advance as tolerated, fall precautions Diet: diabetic Special Instructions: record daily BP diary, record blood sugar diary Follow up with: JINNY GAONA MD [Primary Care Provider] - 3-5 Days BOGDAN CRAWLEY MD [Staff Physician] - 7 Days Prescriptions: Insulin Glargine [Lantus] 30 unit SUB-Q QHS 30 Days ml Carvedilol [Coreg] 3.125 mg PO BID #60 tablet Insulin Regular, Human [HumuLIN R] 0 unit SQ AC #1 vial Magnesium Oxide [Mag-Ox] 400 mg PO QDAY #30 tablet Clopidogrel [Plavix] 75 mg PO DAILY #30 tablet tiZANidine [Zanaflex 4mg TAB] 4 mg PO TID PRN #30 tablet PRN Reason: Spasms Lisinopril [Zestril TAB] 5 mg PO QDAY #30 tablet Other Discharge Orders: Glucometer (Amb) Location: None Selected Glucometer supplies[Amb] Location: None Selected
[2018-12-22 13:24] VITALS: BP 110/75
== END 2018-12-22 17:30 | disposition home or self-care (01) | DRG 682 ==
LOC: ED 14:48 → CC1 16:41 → 2B-ACE 12-21 10:50
PROVIDERS: ADMIT Internal Medicine; ATTEND Internal Medicine
PROC: 5A09357 Assistance with Respiratory Ventilation, Less than 24 Consecutive Hours, Continuous Positive Airway Pressure (ICD-10-PCS; principal; 2018-12-19)
PROC: 05HY33Z Insertion of Infusion Device into Upper Vein, Percutaneous Approach (ICD-10-PCS; 2018-12-19)
DX: N17.0 Acute kidney failure with tubular necrosis (principal); E11.10 Type 2 diabetes mellitus with ketoacidosis without coma; R57.1 Hypovolemic shock; E11.00 Type 2 diabetes mellitus with hyperosmolarity without nonketotic hyperglycemic-hyperosmolar coma (NKHHC); E87.1 Hypo-osmolality and hyponatremia; I50.22 Chronic systolic (congestive) heart failure; I69.354 Hemiplegia and hemiparesis following cerebral infarction affecting left non-dominant side; E87.5 Hyperkalemia; I25.10 Atherosclerotic heart disease of native coronary artery without angina pectoris; I11.0 Hypertensive heart disease with heart failure; I95.9 Hypotension, unspecified; N40.0 Benign prostatic hyperplasia without lower urinary tract symptoms; K21.9 Gastro-esophageal reflux disease without esophagitis; M62.838 Other muscle spasm; E78.5 Hyperlipidemia, unspecified; F41.9 Anxiety disorder, unspecified; M19.90 Unspecified osteoarthritis, unspecified site; E66.01 Morbid (severe) obesity due to excess calories; Z95.5 Presence of coronary angioplasty implant and graft; Z82.49 Family history of ischemic heart disease and other diseases of the circulatory system; Z71.9 Counseling, unspecified; Z79.899 Other long term (current) drug therapy; Z79.82 Long term (current) use of aspirin; I25.2 Old myocardial infarction; Z68.27 Body mass index [BMI] 27.0-27.9, adult; Z71.3 Dietary counseling and surveillance
CPT/HCPCS: 36415; 71045; 80048; 80076; 81001; 82550; 82570; 82805; 82962; 83036; 83735; 83935; 84100; 84300; 84443; 84550; 85025; 87086; 93005; 93010; 94660; 96361; 96374; G0378; A9270-GY; J1644; J1815; J2370; J3480; J7030